=== PATIENT | male | born 1965 | race African-American/Black ===

== ENCOUNTER 2016-10-30 14:46 | Emergency (ER) | payer MEDICAID ==
[~2016-10-30] VITALS: Ht 177.8 cm; Wt 60.0 kg
[~2016-10-30 14:46] MED LIST: ACET-2178 PO; ESOM20CA PO; FERR-63 PO; FURO20TA4 PO; GABA-531 PO; METF10002 PO; MILK OF MAGNESIA PO; MIRT15TA6 PO; NOVOLIN SQ
[2016-10-30 15:40] LABS: CLARITY URINE CLEAR (CLEAR); COLOR URINE YELLOW (YELLOW); GLUCOSE URINE NEGATIVE (NEGATIVE); KETONES URINE NEGATIVE (NEGATIVE); LEUKOCYTE ESTERASE URINE NEGATIVE (NEGATIVE); NITRITE URINE NEGATIVE (NEGATIVE); OCCULT BLOOD URINE NEGATIVE (NEGATIVE); PH URINE 5.5 (4.5-8.0); PROTEIN URINE TRACE (NEGATIVE); SPECIFIC GRAVITY URINE 1.018 (1.005-1.030); UROBILINOGEN URINE 0.2 E.U./dL (0.2-1.0)
[2016-10-30] MEDS ORDERED: TRAMADOL 50MG TABLET PO ONE (16:00)
[2016-10-30 16:22] LABS: BACTERIA URINE 1+; RBC URINE NONE SEEN /hpf (0-2); SQUAMOUS EPITHELIAL CELL URINE RARE /lpf (RARE/1+); WBC URINE 0-2 /hpf (0-2)
[2016-10-30 16:26] LABS: BASOPHILS % 0.4 % (0.0-2.0); HEMATOCRIT. 27.8 % (42.0-52.0); HEMOGLOBIN. 9.1 g/dL (14.0-18.0); MEAN CORPUSCULAR HEMOGLOBIN 30.3 pg (28.0-32.0); MEAN CORPUSCULAR HGB CONC 32.9 g/dL (31.0-37.0); MEAN PLATELET VOLUME 8.4 fl (7.4-10.4); MONOCYTES % 7.3 % (2.0-8.0); NEUTROPHILS % 61.3 % (40.0-76.0); PLATELET 188 x1000/uL (130-400); RED BLOOD CELL COUNT 3.02 mill/uL (4.7-6.1); RED CELL DISTRIBUTION WIDTH 16.1 % (11.6-14.6); WHITE BLOOD COUNT 7.2 x1000/uL (4.5-11.0)
[2016-10-30 16:35] LABS: PARTIAL THROMBOPLASTIN TIME 28.6 sec (24.0-34.0); PROTHROMBIN TIME 10.9 sec
[2016-10-30 16:47] LABS: ALANINE AMINOTRANSFERASE 59 IU/L (13-61); ALBUMIN 3.2 g/dL (3.4-5.0); ANION GAP 11; CARBON DIOXIDE 18 mEq/L (21-32); CHLORIDE 121 mEq/L (98-107); INDEX HEMOLYSI 1 (1-3); INDEX ICTERIC 1 (1-4); INDEX LIPEMIC 1 (1-3); LIPASE 86 IU/L (73-393); MAGNESIUM 1.4 mg/dL (1.8-2.4); PHOSPHORUS 2.7 mg/dL (2.5-4.9); UREA NITROGEN BLOOD 16 mg/dL (7-21); eGFR > 60 mL/min (>60)
[2016-10-30 16:49] LABS: NT PRO B-TYPE NATRIURETIC PEP 824 pg/mL (5-125); TROPONIN I < 0.02 ng/mL (0.00-0.04)
[2016-10-30] MEDS ORDERED: DEXTROSE 50% WATER 50ML SYRINGE IV ONE (17:00)
[2016-10-30] MEDS ORDERED: SODIUM POLYSTYRENE SULFONATE 15 G/60 ML BOT PO ONE (17:00)
[2016-10-30] MEDS ORDERED: CALCIUM CHLORIDE 1GM/10ML SYR IV ONE (17:00)
[2016-10-30] MEDS ORDERED: MAGNESIUM 1 G PREMIX 100 ML IV ONE (17:00)
[2016-10-30] MEDS ORDERED: SODIUM BICARBONATE 8.4% 1 MEQ/ML 50ML SYR IV ONE (17:00)
[2016-10-30] MEDS ORDERED: INSULIN REGULAR (HUMULIN R) 300UNITS/3ML IV ONE (17:00)
[2016-10-30 17:10] VITALS: BP 122/90
== END 2016-10-30 17:52 | disposition left against medical advice (07) ==
LOC: ER 15:23
DX: E87.5 Hyperkalemia (principal); I12.9 Hypertensive chronic kidney disease with stage 1 through stage 4 chronic kidney disease, or unspecified chronic kidney disease; M79.1 Myalgia; R26.89 Other abnormalities of gait and mobility; N17.9 Acute kidney failure, unspecified; E11.9 Type 2 diabetes mellitus without complications; K21.9 Gastro-esophageal reflux disease without esophagitis; J44.9 Chronic obstructive pulmonary disease, unspecified; F17.200 Nicotine dependence, unspecified, uncomplicated; M25.561 Pain in right knee; M25.562 Pain in left knee; Z79.4 Long term (current) use of insulin; Z79.899 Other long term (current) drug therapy
CPT/HCPCS: 36415; 71010; 80053; 81001; 83690; 83735; 83880; 84100; 84484; 85025; 85610; 85730; 93005; 99291; Z7610; J1815; J3475; J3490

== ENCOUNTER 2016-10-31 13:58 | Emergency (ER) | payer MEDICAID ==
[~2016-10-31] VITALS: Ht 175.3 cm; Wt 70.0 kg
[2016-10-31] MEDS ORDERED: MORPHINE SULFATE 4 MG/ML CPJ (NOT FOR IM USE) IV STA (14:19)
[2016-10-31] MEDS ORDERED: ONDANSETRON HCL 4MG/2ML VIAL IV STA (14:19)
[2016-10-31 14:55] LABS: BASOPHILS % 0.6 % (0.0-2.0); EOSINOPHILS % 2.6 % (0.0-5.0); HEMATOCRIT. 28.7 % (42.0-52.0); HEMOGLOBIN. 9.6 g/dL (14.0-18.0); MEAN CORPUSCULAR HEMOGLOBIN 30.4 pg (28.0-32.0); MEAN CORPUSCULAR HGB CONC 33.5 g/dL (31.0-37.0); MEAN CORPUSCULAR VOLUME 90.7 fL (80.0-94.0); MEAN PLATELET VOLUME 8.1 fl (7.4-10.4); MONOCYTES % 5.6 % (2.0-8.0); NEUTROPHILS % 66.2 % (40.0-76.0); PLATELET 219 x1000/uL (130-400); RED BLOOD CELL COUNT 3.16 mill/uL (4.7-6.1); RED CELL DISTRIBUTION WIDTH 16.1 % (11.6-14.6)
[2016-10-31 14:57] LABS: DIFFERENTIAL COMMENT 1
[2016-10-31 15:00] LABS: INR 1.1; PROTHROMBIN TIME 11.2 sec
[2016-10-31 15:06] LABS: ALANINE AMINOTRANSFERASE 57 IU/L (13-61); ALBUMIN 3.7 g/dL (3.4-5.0); ANION GAP 13; CALCIUM 8.3 mg/dL (8.5-10.1); CARBON DIOXIDE 20 mEq/L (21-32); CHLORIDE 113 mEq/L (98-107); INDEX HEMOLYSI 1 (1-3); INDEX ICTERIC 1 (1-4); INDEX LIPEMIC 1 (1-3); LIPASE 85 IU/L (73-393); UREA NITROGEN BLOOD 14 mg/dL (7-21); eGFR > 60 mL/min (>60)
[2016-10-31 16:02] LABS: CLARITY URINE CLEAR (CLEAR); COLOR URINE YELLOW (YELLOW); GLUCOSE URINE 1+ (NEGATIVE); KETONES URINE NEGATIVE (NEGATIVE); LEUKOCYTE ESTERASE URINE NEGATIVE (NEGATIVE); NITRITE URINE NEGATIVE (NEGATIVE); OCCULT BLOOD URINE NEGATIVE (NEGATIVE); PH URINE 5.5 (4.5-8.0); PROTEIN URINE 1+ (NEGATIVE); UROBILINOGEN URINE 0.2 E.U./dL (0.2-1.0)
[2016-10-31 16:06] LABS: BACTERIA URINE NONE SEEN; CALCIUM PHOSPHATE CRYSTALS UR NONE SEEN /lpf; RBC URINE NONE SEEN /hpf (0-2); SQUAMOUS EPITHELIAL CELL URINE NONE SEEN /lpf (RARE/1+); WAXY CASTS URINE NONE SEEN /lpf; WBC URINE NONE SEEN /hpf (0-2); YEAST URINE NONE SEEN
[2016-10-31 16:28] LABS: *AMPHETAMINES SCREEN URINE NEGATIVE (NEGATIVE); *BARBITURATES SCREEN URINE NEGATIVE (NEGATIVE); *BENZODIAZEPINES SCREEN URINE NEGATIVE (NEGATIVE); *COCAINE SCREEN URINE NEGATIVE (NEGATIVE); CANNABINOID URINE SCREEN PRESUMTIVE POSITIVE (NEGATIVE); ECSTASY MDMA SCREEN URINE NEGATIVE (NEGATIVE); METHADONE URINE SCREEN NEGATIVE (NEGATIVE); OPIATES URINE SCREEN NEGATIVE (NEGATIVE); PHENCYCLIDINE URINE SCREEN NEGATIVE (NEGATIVE)
[2016-10-31] MEDS ORDERED: SODIUM POLYSTYRENE SULFONATE 15 G/60 ML BOT PO ONE (18:15)
[2016-10-31 20:11] VITALS: BP 112/79
== END 2016-10-31 20:18 | disposition home or self-care (01) ==
LOC: ER 14:11
DX: R10.13 Epigastric pain (principal); J44.9 Chronic obstructive pulmonary disease, unspecified; E11.9 Type 2 diabetes mellitus without complications; I12.0 Hypertensive chronic kidney disease with stage 5 chronic kidney disease or end stage renal disease; N18.6 End stage renal disease; K21.9 Gastro-esophageal reflux disease without esophagitis; Z79.899 Other long term (current) drug therapy
CPT/HCPCS: 36415; 74176; 76705; 80053; 80305; 81001; 83690; 85025; 85610; 96374; 96375; 99285; J2270; J2405; Z7610

== ENCOUNTER 2016-12-03 16:37 | Emergency (ER) | payer MEDICAID ==
[~2016-12-03] VITALS: Ht 172.7 cm; Wt 66.0 kg
[2016-12-04] MEDS ORDERED: KETOROLAC 30MG/ML VIAL IV STA (02:14)
[2016-12-04] MEDS ORDERED: ONDANSETRON HCL 4MG/2ML VIAL IV STA (02:14)
[2016-12-04] MEDS ORDERED: SODIUM CHLORIDE 0.9% 1,000 ML IV ONE (02:14)
[2016-12-04] MEDS ORDERED: MAGNESIUM/ALUMINUM HYDROXIDE/SIMETHICONE 30ML UDC PO STA (02:14)
[2016-12-04 02:37] LABS: BASOPHILS % 0.5 % (0.0-2.0); EOSINOPHILS % 1.1 % (0.0-5.0); HEMATOCRIT. 31.7 % (42.0-52.0); HEMOGLOBIN. 10.5 g/dL (14.0-18.0); LYMPHOCYTES % 23.9 % (20.0-50.0); MEAN CORPUSCULAR VOLUME 90.9 fL (80.0-94.0); MEAN PLATELET VOLUME 8.6 fl (7.4-10.4); MONOCYTES % 6.7 % (2.0-8.0); NEUTROPHILS % 67.8 % (40.0-76.0); PLATELET 238 x1000/uL (130-400); RED BLOOD CELL COUNT 3.49 mill/uL (4.7-6.1); RED CELL DISTRIBUTION WIDTH 15.4 % (11.6-14.6); WHITE BLOOD COUNT 8.4 x1000/uL (4.5-11.0)
[2016-12-04 02:42] LABS: ALANINE AMINOTRANSFERASE 27 IU/L (13-61); ALBUMIN 3.8 g/dL (3.4-5.0); ANION GAP 14; CALCIUM 8.5 mg/dL (8.5-10.1); CARBON DIOXIDE 22 mEq/L (21-32); CHLORIDE 111 mEq/L (98-107); ETHANOL BLOOD < 10 mg/dL; INDEX HEMOLYSI 1 (1-3); INDEX ICTERIC 1 (1-4); INDEX LIPEMIC 1 (1-3); LIPASE 67 IU/L (73-393); UREA NITROGEN BLOOD 25 mg/dL (7-21); eGFR > 60 mL/min (>60)
[2016-12-04 02:51] LABS: CLARITY URINE CLEAR (CLEAR); COLOR URINE YELLOW (YELLOW); GLUCOSE URINE NEGATIVE (NEGATIVE); KETONES URINE NEGATIVE (NEGATIVE); LEUKOCYTE ESTERASE URINE NEGATIVE (NEGATIVE); NITRITE URINE NEGATIVE (NEGATIVE); OCCULT BLOOD URINE NEGATIVE (NEGATIVE); PH URINE 5.5 (4.5-8.0); PROTEIN URINE 1+ (NEGATIVE); SPECIFIC GRAVITY URINE 1.023 (1.005-1.030); UROBILINOGEN URINE 0.2 E.U./dL (0.2-1.0)
[2016-12-04 03:04] LABS: *AMPHETAMINES SCREEN URINE NEGATIVE (NEGATIVE); *BARBITURATES SCREEN URINE NEGATIVE (NEGATIVE); *BENZODIAZEPINES SCREEN URINE NEGATIVE (NEGATIVE); *COCAINE SCREEN URINE NEGATIVE (NEGATIVE); CANNABINOID URINE SCREEN PRESUMTIVE POSITIVE (NEGATIVE); ECSTASY MDMA SCREEN URINE NEGATIVE (NEGATIVE); METHADONE URINE SCREEN NEGATIVE (NEGATIVE); OPIATES URINE SCREEN NEGATIVE (NEGATIVE); PHENCYCLIDINE URINE SCREEN NEGATIVE (NEGATIVE)
[2016-12-04 03:13] LABS: BACTERIA URINE NONE SEEN; RBC URINE 0-2 /hpf (0-2); SQUAMOUS EPITHELIAL CELL URINE RARE /lpf (RARE/1+); WBC URINE 0-2 /hpf (0-2)
[2016-12-04] MEDS ORDERED: FAMOTIDINE 20MG/2ML VIAL IV STA (04:31)
[2016-12-04 05:55] VITALS: BP 118/80
== END 2016-12-04 06:42 | disposition home or self-care (01) ==
LOC: ER 16:38
DX: K29.00 Acute gastritis without bleeding (principal); J44.9 Chronic obstructive pulmonary disease, unspecified; E11.9 Type 2 diabetes mellitus without complications; K21.9 Gastro-esophageal reflux disease without esophagitis; I10 Essential (primary) hypertension; F17.210 Nicotine dependence, cigarettes, uncomplicated; Z79.4 Long term (current) use of insulin; Z79.1 Long term (current) use of non-steroidal anti-inflammatories (NSAID); Z79.899 Other long term (current) drug therapy
CPT/HCPCS: 36415; 80053; 80305; 81001; 83690; 85025; 96361; 96374; 96375; 99285; G0482; J1885; J2405; J7030; J3490

== ENCOUNTER 2016-12-14 15:07 | Emergency (ER) | payer MEDICAID, OTHER ==
[~2016-12-14] VITALS: Ht 177.8 cm; Wt 62.0 kg
[2016-12-14] MEDS ORDERED: SILVER SULFADIAZINE 1% CREAM 25GM TOP ONE (16:45)
[2016-12-14 18:14] VITALS: BP 103/62
[2016-12-14] MEDS ORDERED: KETOROLAC 60MG/2ML VIAL IM ONE (18:15)
== END 2016-12-14 18:45 | disposition home or self-care (01) ==
LOC: ER 15:52
DX: T24.202A Burn of second degree of unspecified site of left lower limb, except ankle and foot, initial encounter (principal); W29.2XXA Contact with other powered household machinery, initial encounter; Y93.84 Activity, sleeping; Y92.092 Bedroom in other non-institutional residence as the place of occurrence of the external cause; Z79.4 Long term (current) use of insulin; E11.9 Type 2 diabetes mellitus without complications; F17.210 Nicotine dependence, cigarettes, uncomplicated
CPT/HCPCS: 16020; 82962; 96372; 99284; J1885; Z7610

== ENCOUNTER 2016-12-19 16:36 | Emergency (ER) | payer MEDICAID, OTHER ==
[~2016-12-19] VITALS: Ht 177.8 cm; Wt 64.0 kg
[2016-12-19] MEDS ORDERED: BACITRACIN ZINC OINT UDPKT TOP ONE (18:15)
[2016-12-19] MEDS ORDERED: MORPHINE SULFATE 10 MG/ML CPJ IM ONE (18:15)
[2016-12-19 18:34] LABS: BASOPHILS % 0.4 % (0.0-2.0); EOSINOPHILS % 1.7 % (0.0-5.0); HEMATOCRIT. 29.1 % (42.0-52.0); HEMOGLOBIN. 9.7 g/dL (14.0-18.0); LYMPHOCYTES % 26.5 % (20.0-50.0); MEAN CORPUSCULAR HEMOGLOBIN 30.1 pg (28.0-32.0); MEAN CORPUSCULAR HGB CONC 33.2 g/dL (31.0-37.0); MEAN CORPUSCULAR VOLUME 90.7 fL (80.0-94.0); MEAN PLATELET VOLUME 8.3 fl (7.4-10.4); MONOCYTES % 8.7 % (2.0-8.0); NEUTROPHILS % 62.7 % (40.0-76.0); PLATELET 229 x1000/uL (130-400); RED BLOOD CELL COUNT 3.21 mill/uL (4.7-6.1); RED CELL DISTRIBUTION WIDTH 14.5 % (11.6-14.6); WHITE BLOOD COUNT 7.2 x1000/uL (4.5-11.0)
[2016-12-19 18:39] LABS: CHLORIDE 109 mEq/L (98-107); INDEX HEMOLYSI 1 (1-3); INDEX ICTERIC 1 (1-4); INDEX LIPEMIC 1 (1-3)
[2016-12-19 18:40] LABS: INR 1.1; PROTHROMBIN TIME 11.5 sec
[2016-12-19 18:45] LABS: ANION GAP 12; CALCIUM 8.1 mg/dL (8.5-10.1); CARBON DIOXIDE 22 mEq/L (21-32); UREA NITROGEN BLOOD 14 mg/dL (7-21); eGFR > 60 mL/min (>60)
[2016-12-19] MEDS ORDERED: CEPHALEXIN 500MG CAPSULE PO ONE (19:15)
[2016-12-19] MEDS ORDERED: SULFAMETHOXAZOLE/TRIMETHOPRIM 800/160MG TABLET PO ONE (19:15)
[2016-12-19 19:25] VITALS: BP 137/80
== END 2016-12-19 20:35 | disposition home or self-care (01) ==
LOC: ER 20:04
DX: T24.202A Burn of second degree of unspecified site of left lower limb, except ankle and foot, initial encounter (principal); L03.116 Cellulitis of left lower limb; E11.9 Type 2 diabetes mellitus without complications; F17.210 Nicotine dependence, cigarettes, uncomplicated; Z79.899 Other long term (current) drug therapy; X08.8XXA Exposure to other specified smoke, fire and flames, initial encounter; Y93.89 Activity, other specified; Y92.9 Unspecified place or not applicable; Y99.8 Other external cause status
CPT/HCPCS: 36415; 80048; 83605; 85025; 85610; 87070; 87077; 87186; 87205; 96372; 99285; J2270; Z7610

== ENCOUNTER 2017-02-07 13:00 | Emergency (ER) | payer MEDICAID, OTHER ==
[~2017-02-07] VITALS: Ht 177.8 cm; Wt 68.0 kg
[2017-02-07 13:15] VITALS: BP 125/83
[2017-02-07] MEDS ORDERED: IBUPROFEN 600MG TABLET PO ONE (14:45)
[2017-02-07] MEDS ORDERED: ACETAMINOPHEN 325MG TABLET PO ONE (15:00)
== END 2017-02-07 15:18 | disposition home or self-care (01) ==
LOC: ER 13:55
DX: M79.605 Pain in left leg (principal); I10 Essential (primary) hypertension; E11.9 Type 2 diabetes mellitus without complications; Z79.4 Long term (current) use of insulin
CPT/HCPCS: 99282; Z7610

== ENCOUNTER 2017-12-15 13:26 | Emergency (ER) | payer MEDICAID ==
[~2017-12-15] VITALS: Ht 162.6 cm; Wt 64.0 kg
[2017-12-15 14:36] LABS: BASOPHILS % 0.3 % (0.0-2.0); EOSINOPHILS % 3.1 % (0.0-5.0); HEMATOCRIT. 28.5 % (42.0-52.0); HEMOGLOBIN. 9.5 g/dL (14.0-18.0); LYMPHOCYTES % 32.7 % (20.0-50.0); MEAN CORPUSCULAR HEMOGLOBIN 31.7 pg (28.0-32.0); MEAN CORPUSCULAR VOLUME 94.7 fL (80.0-94.0); MEAN PLATELET VOLUME 8.2 fl (7.4-10.4); MONOCYTES % 7.7 % (2.0-8.0); NEUTROPHILS % 56.2 % (40.0-76.0); PLATELET 163 x1000/uL (130-400); RED BLOOD CELL COUNT 3.01 mill/uL (4.7-6.1); RED CELL DISTRIBUTION WIDTH 14.6 % (11.6-14.6)
[2017-12-15 14:42] LABS: CHLORIDE 119 mEq/L (98-107)
[2017-12-15 14:43] VITALS: BP 119/72
== END 2017-12-15 15:27 | disposition left against medical advice (07) ==
LOC: ER 15:00
DX: M79.669 Pain in unspecified lower leg (principal); E11.9 Type 2 diabetes mellitus without complications; Z79.4 Long term (current) use of insulin
CPT/HCPCS: 36415; 80053; 85025; 99284

== ENCOUNTER 2018-06-05 12:38 | Inpatient (IN) | payer MEDICAID ==
[~2018-06-05] VITALS: Ht 172.7 cm; Wt 63.5 kg
[~2018-06-05 12:38] MED LIST changes: -ESOM20CA PO; -METF10002 PO; -MILK OF MAGNESIA PO; -MIRT15TA6 PO; -NOVOLIN SQ
[2018-06-05 14:20] LABS: BASOPHILS % 0.9 % (0.0-2.0); EOSINOPHILS % 1.7 % (0.0-5.0); HEMATOCRIT. 23.4 % (42.0-52.0); HEMOGLOBIN. 7.9 g/dL (14.0-18.0); LYMPHOCYTES % 12.3 % (20.0-50.0); MEAN CORPUSCULAR HEMOGLOBIN 32.8 pg (28.0-32.0); MEAN CORPUSCULAR VOLUME 97.2 fL (80.0-94.0); MEAN PLATELET VOLUME 7.8 fl (7.4-10.4); MONOCYTES % 7.7 % (2.0-8.0); NEUTROPHILS % 77.4 % (40.0-76.0); PLATELET 200 x1000/uL (130-400); RED BLOOD CELL COUNT 2.41 mill/uL (4.7-6.1); RED CELL DISTRIBUTION WIDTH 16.6 % (11.6-14.6)
[2018-06-05 14:25] LABS: CLARITY URINE CLEAR (CLEAR); COLOR URINE YELLOW (YELLOW); KETONES URINE NEGATIVE (NEGATIVE); LEUKOCYTE ESTERASE URINE NEGATIVE (NEGATIVE); NITRITE URINE NEGATIVE (NEGATIVE); OCCULT BLOOD URINE NEGATIVE (NEGATIVE); PROTEIN URINE TRACE (NEGATIVE); SPECIFIC GRAVITY URINE 1.018 (1.005-1.030); UROBILINOGEN URINE 0.2 E.U./dL (0.2-1.0)
[2018-06-05 14:27] LABS: PROTHROMBIN TIME 10.5 sec (9.1-11.1)
[2018-06-05 14:31] LABS: CHLORIDE 110 mEq/L (98-107)
[2018-06-05] MEDS ORDERED: OXYCODONE HCL/ACETAMINOPHEN 5/325MG TABLET PO ONE (15:15)
[2018-06-05] MEDS ORDERED: CLINDAMYCIN 600 MG in DEXTROSE 5% WATER 50 ML IV ONE (15:15)
[2018-06-05] MEDS ORDERED: DOCUSATE SODIUM 100MG CAPSULE PO PRN (15:45)
[2018-06-05] MEDS ORDERED: ONDANSETRON HCL 4MG/2ML INJ IV PRN (15:45)
[2018-06-05] MEDS ORDERED: CLONIDINE 0.1MG TABLET PO PRN (15:45)
[2018-06-05] MEDS ORDERED: IPRATROPIUM/ALBUTEROL 0.5-3(2.5)MG/3ML NEB INH PRN (15:45)
[2018-06-05] MEDS ORDERED: ACETAMINOPHEN 325MG TABLET PO PRN (15:45)
[2018-06-05] MEDS: HYDROCODONE/ACETAMINOPHEN 5/325MG TABLET PO PRN (18:52)
[2018-06-05 21:30] VITALS: BP 113/66
[2018-06-05 22:00] VITALS: BP 113/66
[2018-06-05] MEDS ORDERED: DEXTROSE 50% WATER 50ML SYRINGE IV PRN (22:00)
[2018-06-06] MEDS: HYDROCODONE/ACETAMINOPHEN 5/325MG TABLET PO PRN ×3 (00:12→12:37)
[2018-06-06 00:49] VITALS: BP 116/72
[2018-06-06 04:00] VITALS: BP 122/68
[2018-06-06] MEDS: BLOOD SUGAR DIAGNOSTIC STRIP TEST SCH ×4 (06:25→21:30)
[2018-06-06 07:34] LABS: BASOPHILS % 0.6 % (0.0-2.0); EOSINOPHILS % 1.9 % (0.0-5.0); HEMATOCRIT. 22.5 % (42.0-52.0); HEMOGLOBIN. 7.5 g/dL (14.0-18.0); LYMPHOCYTES % 15.9 % (20.0-50.0); MEAN CORPUSCULAR HEMOGLOBIN 32.5 pg (28.0-32.0); MEAN CORPUSCULAR VOLUME 97.9 fL (80.0-94.0); MEAN PLATELET VOLUME 7.9 fl (7.4-10.4); MONOCYTES % 7.6 % (2.0-8.0); PLATELET 187 x1000/uL (130-400); RED CELL DISTRIBUTION WIDTH 16.7 % (11.6-14.6)
[2018-06-06] MEDS: INSULIN LISPRO 100 UNITS/ML SUBCUT SCH ×4 (07:41→21:30)
[2018-06-06 08:00] VITALS: BP 96/60
[2018-06-06 12:00] VITALS: BP 125/65
[2018-06-06 16:00] VITALS: BP 110/68
[2018-06-06] MEDS: MORPHINE SULFATE 4 MG/ML CPJ (NOT FOR IM USE) IV PRN (18:57)
[2018-06-06 20:00] VITALS: BP 139/75
[2018-06-07] VITALS: BP 126/76
[2018-06-07] MEDS: MORPHINE SULFATE 4 MG/ML CPJ (NOT FOR IM USE) IV PRN ×4 (00:11→21:09)
[2018-06-07 04:00] VITALS: BP 130/65
[2018-06-07] MEDS: BLOOD SUGAR DIAGNOSTIC STRIP TEST SCH ×3 (07:40→21:00)
[2018-06-07 08:00] VITALS: BP 124/67
[2018-06-07] MEDS: INSULIN LISPRO 100 UNITS/ML SUBCUT SCH ×4 (08:10→21:00)
[2018-06-07 08:23] LABS: BASOPHILS % 0.8 % (0.0-2.0); EOSINOPHILS % 1.2 % (0.0-5.0); HEMATOCRIT. 23.9 % (42.0-52.0); LYMPHOCYTES % 16.7 % (20.0-50.0); MEAN CORPUSCULAR HEMOGLOBIN 32.7 pg (28.0-32.0); MEAN CORPUSCULAR VOLUME 98.2 fL (80.0-94.0); MEAN PLATELET VOLUME 7.8 fl (7.4-10.4); NEUTROPHILS % 72.3 % (40.0-76.0); PLATELET 201 x1000/uL (130-400); RED BLOOD CELL COUNT 2.44 mill/uL (4.7-6.1); RED CELL DISTRIBUTION WIDTH 16.5 % (11.6-14.6)
[2018-06-07 12:48] LABS: TOTAL IRON BINDING CAPACITY 196 ug/dL (250-450)
[2018-06-07 13:08] LABS: FOLIC ACID (FOLATE) SERUM 10.2 ng/mL (>5.38)
[2018-06-07 16:00] VITALS: BP 129/75
[2018-06-07] MEDS: HYDROCODONE/ACETAMINOPHEN 5/325MG TABLET PO PRN (16:25)
[2018-06-07 20:00] VITALS: BP 143/64
[2018-06-08] VITALS (7 sets, daily range): BP systolic 113–139; BP diastolic 56–75
[2018-06-08] MEDS: MORPHINE SULFATE 4 MG/ML CPJ (NOT FOR IM USE) IV PRN ×3 (03:29→20:24)
[2018-06-08] MEDS: HYDROCODONE/ACETAMINOPHEN 5/325MG TABLET PO PRN ×3 (05:03→18:44)
[2018-06-08 07:29] LABS: BASOPHILS % 0.5 % (0.0-2.0); EOSINOPHILS % 1.7 % (0.0-5.0); HEMATOCRIT. 22.5 % (42.0-52.0); HEMOGLOBIN. 7.4 g/dL (14.0-18.0); LYMPHOCYTES % 18.6 % (20.0-50.0); MEAN CORPUSCULAR VOLUME 96.8 fL (80.0-94.0); MEAN PLATELET VOLUME 8.2 fl (7.4-10.4); MONOCYTES % 9.8 % (2.0-8.0); NEUTROPHILS % 69.4 % (40.0-76.0); PLATELET 191 x1000/uL (130-400); RED BLOOD CELL COUNT 2.32 mill/uL (4.7-6.1); RED CELL DISTRIBUTION WIDTH 16.4 % (11.6-14.6)
[2018-06-08] MEDS: BLOOD SUGAR DIAGNOSTIC STRIP TEST SCH ×4 (07:40→21:40)
[2018-06-08] MEDS: INSULIN LISPRO 100 UNITS/ML SUBCUT SCH ×4 (08:10→21:00)
[2018-06-08] MEDS: FAMOTIDINE 20MG/2ML VIAL IV SCH (08:33)
[2018-06-08] MEDS ORDERED: PEPJ2 PO (11:12)
[2018-06-08] MEDS: EPOETIN ALFA 10000UNITS/ML VIAL SUBCUT SCH (21:36)
[2018-06-09] VITALS: BP 119/75
[2018-06-09] MEDS: HYDROCODONE/ACETAMINOPHEN 5/325MG TABLET PO PRN ×4 (01:11→21:13)
[2018-06-09 04:00] VITALS: BP 131/71
[2018-06-09] MEDS: MORPHINE SULFATE 4 MG/ML CPJ (NOT FOR IM USE) IV PRN ×3 (05:16→22:31)
[2018-06-09] MEDS: BLOOD SUGAR DIAGNOSTIC STRIP TEST SCH ×4 (05:23→21:17)
[2018-06-09 06:06] LABS: BASOPHILS % 0.4 % (0.0-2.0); EOSINOPHILS % 1.4 % (0.0-5.0); HEMOGLOBIN. 7.4 g/dL (14.0-18.0); MEAN CORPUSCULAR HEMOGLOBIN 32.5 pg (28.0-32.0); MEAN CORPUSCULAR VOLUME 97.3 fL (80.0-94.0); MEAN PLATELET VOLUME 8.2 fl (7.4-10.4); MONOCYTES % 11.4 % (2.0-8.0); NEUTROPHILS % 67.8 % (40.0-76.0); PLATELET 194 x1000/uL (130-400); RED BLOOD CELL COUNT 2.26 mill/uL (4.7-6.1); RED CELL DISTRIBUTION WIDTH 16.1 % (11.6-14.6)
[2018-06-09 08:00] VITALS: BP 134/57
[2018-06-09] MEDS: FAMOTIDINE 20MG/2ML VIAL IV SCH (08:38)
[2018-06-09] MEDS: INSULIN LISPRO 100 UNITS/ML SUBCUT SCH ×4 (08:46→21:17)
[2018-06-09 12:00] VITALS: BP 129/61
[2018-06-09 16:00] VITALS: BP 142/68
[2018-06-09 20:00] VITALS: BP 125/73
[2018-06-10] VITALS: BP 109/51
[2018-06-10] MEDS: HYDROCODONE/ACETAMINOPHEN 5/325MG TABLET PO PRN ×3 (02:13→20:05)
[2018-06-10 04:00] VITALS: BP 123/69
[2018-06-10] MEDS: MORPHINE SULFATE 4 MG/ML CPJ (NOT FOR IM USE) IV PRN ×4 (04:27→22:02)
[2018-06-10] MEDS: BLOOD SUGAR DIAGNOSTIC STRIP TEST SCH ×4 (04:28→21:54)
[2018-06-10 06:59] LABS: BASOPHILS % 0.4 % (0.0-2.0); EOSINOPHILS % 1.9 % (0.0-5.0); HEMATOCRIT. 22.4 % (42.0-52.0); HEMOGLOBIN. 7.3 g/dL (14.0-18.0); LYMPHOCYTES % 14.7 % (20.0-50.0); MEAN CORPUSCULAR HEMOGLOBIN 31.8 pg (28.0-32.0); MEAN CORPUSCULAR VOLUME 97.2 fL (80.0-94.0); MEAN PLATELET VOLUME 8.5 fl (7.4-10.4); MONOCYTES % 9.2 % (2.0-8.0); NEUTROPHILS % 73.8 % (40.0-76.0); PLATELET 173 x1000/uL (130-400); RED CELL DISTRIBUTION WIDTH 16.2 % (11.6-14.6)
[2018-06-10 08:00] VITALS: BP 151/80
[2018-06-10] MEDS: FAMOTIDINE 20MG/2ML VIAL IV SCH (08:02)
[2018-06-10] MEDS: INSULIN LISPRO 100 UNITS/ML SUBCUT SCH ×4 (08:04→21:00)
[2018-06-10 12:00] VITALS: BP 148/89
[2018-06-10] MEDS ORDERED: HEPARIN SODIUM 1,000 UNIT/1ML VIAL IV SCH (12:45)
[2018-06-10 16:00] VITALS: BP 152/76
[2018-06-10 20:00] VITALS: BP 122/49
[2018-06-10] MEDS: EPOETIN ALFA 10000UNITS/ML VIAL SUBCUT SCH (21:58)
[2018-06-11] VITALS: BP 116/62
[2018-06-11] MEDS: HYDROCODONE/ACETAMINOPHEN 5/325MG TABLET PO PRN ×5 (00:23→23:01)
[2018-06-11 04:00] VITALS: BP 126/72
[2018-06-11] MEDS: BLOOD SUGAR DIAGNOSTIC STRIP TEST SCH ×4 (04:37→21:41)
[2018-06-11] MEDS: MORPHINE SULFATE 4 MG/ML CPJ (NOT FOR IM USE) IV PRN ×2 (04:37→09:31)
[2018-06-11 06:47] LABS: BASOPHILS % 0.3 % (0.0-2.0); EOSINOPHILS % 2.2 % (0.0-5.0); HEMATOCRIT. 22.6 % (42.0-52.0); HEMOGLOBIN. 7.5 g/dL (14.0-18.0); LYMPHOCYTES % 15.6 % (20.0-50.0); MEAN CORPUSCULAR HEMOGLOBIN 32.4 pg (28.0-32.0); MEAN CORPUSCULAR VOLUME 98.2 fL (80.0-94.0); MEAN PLATELET VOLUME 8.3 fl (7.4-10.4); MONOCYTES % 10.8 % (2.0-8.0); NEUTROPHILS % 71.1 % (40.0-76.0); PLATELET 207 x1000/uL (130-400)
[2018-06-11 08:00] VITALS: BP 145/78
[2018-06-11] MEDS: INSULIN LISPRO 100 UNITS/ML SUBCUT SCH ×4 (08:10→21:43)
[2018-06-11] MEDS: FAMOTIDINE 20MG/2ML VIAL IV SCH (09:31)
[2018-06-11 14:09] VITALS: BP 140/74
[2018-06-11 15:59] VITALS: BP 101/60
[2018-06-11 20:00] VITALS: BP 143/79
[2018-06-12] VITALS: BP 136/77
[2018-06-12 04:00] VITALS: BP 145/77
[2018-06-12] MEDS: HYDROCODONE/ACETAMINOPHEN 5/325MG TABLET PO PRN ×3 (05:19→21:47)
[2018-06-12] MEDS: BLOOD SUGAR DIAGNOSTIC STRIP TEST SCH ×4 (06:16→21:47)
[2018-06-12] MEDS: INSULIN LISPRO 100 UNITS/ML SUBCUT SCH ×4 (06:16→21:58)
[2018-06-12 07:24] LABS: BASOPHILS % 0.2 % (0.0-2.0); EOSINOPHILS % 1.8 % (0.0-5.0); HEMATOCRIT. 22.6 % (42.0-52.0); HEMOGLOBIN. 7.7 g/dL (14.0-18.0); LYMPHOCYTES % 15.4 % (20.0-50.0); MEAN CORPUSCULAR HEMOGLOBIN 32.8 pg (28.0-32.0); MEAN CORPUSCULAR VOLUME 96.8 fL (80.0-94.0); MEAN PLATELET VOLUME 8.3 fl (7.4-10.4); MONOCYTES % 10.9 % (2.0-8.0); NEUTROPHILS % 71.7 % (40.0-76.0); PLATELET 217 x1000/uL (130-400); RED BLOOD CELL COUNT 2.33 mill/uL (4.7-6.1)
[2018-06-12 08:00] VITALS: BP 139/75
[2018-06-12] MEDS: FAMOTIDINE 20MG/2ML VIAL IV SCH ×2 (09:00→09:56)
[2018-06-12 12:00] VITALS: BP 154/78
[2018-06-12] MEDS ORDERED: HEPARIN SODIUM 1,000 UNIT/1ML VIAL IV NR (13:00)
[2018-06-12 16:00] VITALS: BP 132/64
[2018-06-12 20:00] VITALS: BP 132/72
[2018-06-12] MEDS: EPOETIN ALFA 10000UNITS/ML VIAL SUBCUT SCH (21:42)
[2018-06-13] VITALS: BP 144/75
[2018-06-13 04:00] VITALS: BP_SYST 121; BP_SYST 129; BP_SYST 144; BP_DIAS 58; BP_DIAS 72; BP_DIAS 75
[2018-06-13] MEDS: HYDROCODONE/ACETAMINOPHEN 5/325MG TABLET PO PRN ×3 (06:29→18:19)
[2018-06-13] MEDS: BLOOD SUGAR DIAGNOSTIC STRIP TEST SCH ×4 (07:27→21:22)
[2018-06-13] MEDS: INSULIN LISPRO 100 UNITS/ML SUBCUT SCH ×4 (07:57→21:00)
[2018-06-13 08:00] VITALS: BP 107/68
[2018-06-13] MEDS: FAMOTIDINE 20MG/2ML VIAL IV SCH (09:00)
[2018-06-13 12:00] VITALS: BP 106/57
[2018-06-13 16:00] VITALS: BP 132/55
[2018-06-14] VITALS: BP 121/65
[2018-06-14] MEDS: HYDROCODONE/ACETAMINOPHEN 5/325MG TABLET PO PRN ×4 (02:40→19:52)
[2018-06-14] MEDS: BLOOD SUGAR DIAGNOSTIC STRIP TEST SCH ×4 (05:58→21:09)
[2018-06-14 08:00] VITALS: BP 112/73
[2018-06-14 08:08] LABS: BASOPHILS % 0.5 % (0.0-2.0); EOSINOPHILS % 1.7 % (0.0-5.0); HEMATOCRIT. 24.8 % (42.0-52.0); HEMOGLOBIN. 8.2 g/dL (14.0-18.0); LYMPHOCYTES % 25.9 % (20.0-50.0); MEAN CORPUSCULAR VOLUME 96.5 fL (80.0-94.0); MEAN PLATELET VOLUME 7.8 fl (7.4-10.4); MONOCYTES % 8.2 % (2.0-8.0); NEUTROPHILS % 63.7 % (40.0-76.0); PLATELET 305 x1000/uL (130-400); RED BLOOD CELL COUNT 2.57 mill/uL (4.7-6.1)
[2018-06-14] MEDS: INSULIN LISPRO 100 UNITS/ML SUBCUT SCH ×4 (08:10→21:00)
[2018-06-14] MEDS: FAMOTIDINE 20MG/2ML VIAL IV SCH (08:21)
[2018-06-14 12:00] VITALS: BP 122/72
[2018-06-14 17:00] VITALS: BP 122/72
[2018-06-14 20:00] VITALS: BP 147/81
[2018-06-14] MEDS ORDERED: FAMOTIDINE 20MG TABLET PO SCH (21:00)
== END 2018-06-14 22:21 | DRG 469 ==
LOC: ER 13:35 → 7WST 15:14 → EDBEDREQ 15:18 → ENRESERV 19:39
PROVIDERS: ADMIT Internal Medicine; ATTEND Internal Medicine
PROC: 5A1D70Z Performance of Urinary Filtration, Intermittent, Less than 6 Hours Per Day (ICD-10-PCS; principal; 2018-06-06)
PROC: 5A1D70Z Performance of Urinary Filtration, Intermittent, Less than 6 Hours Per Day (ICD-10-PCS; 2018-06-08)
PROC: 5A1D70Z Performance of Urinary Filtration, Intermittent, Less than 6 Hours Per Day (ICD-10-PCS; 2018-06-10)
PROC: 5A1D70Z Performance of Urinary Filtration, Intermittent, Less than 6 Hours Per Day (ICD-10-PCS; 2018-06-12)
DX: N17.9 Acute kidney failure, unspecified (principal); E11.22 Type 2 diabetes mellitus with diabetic chronic kidney disease; E11.40 Type 2 diabetes mellitus with diabetic neuropathy, unspecified; L03.115 Cellulitis of right lower limb; E87.5 Hyperkalemia; I12.0 Hypertensive chronic kidney disease with stage 5 chronic kidney disease or end stage renal disease; L03.116 Cellulitis of left lower limb; N18.6 End stage renal disease; F17.210 Nicotine dependence, cigarettes, uncomplicated; D53.9 Nutritional anemia, unspecified; S60.521A Blister (nonthermal) of right hand, initial encounter; K21.9 Gastro-esophageal reflux disease without esophagitis; K52.9 Noninfective gastroenteritis and colitis, unspecified; S80.222A Blister (nonthermal), left knee, initial encounter; S80.221A Blister (nonthermal), right knee, initial encounter; S60.821A Blister (nonthermal) of right wrist, initial encounter; X58.XXXA Exposure to other specified factors, initial encounter; R10.9 Unspecified abdominal pain; Y93.89 Activity, other specified; Y92.89 Other specified places as the place of occurrence of the external cause; Y99.8 Other external cause status; Z59.0 Homelessness; Z99.2 Dependence on renal dialysis; Z88.6 Allergy status to analgesic agent; Z79.899 Other long term (current) drug therapy; Z89.022 Acquired absence of left finger(s)
CPT/HCPCS: 36415; 71045; 76700; 80048; 80061; 82270; 82607; 82728; 82746; 82962; 83540; 83550; 84443; 87015; 87045; 87427; 87449; 89055; 93005; 93970; 96365; 99285; J0885; J1644; J1815; J2270; J3490; J7030; J7060

== ENCOUNTER 2018-09-01 11:06 | Inpatient (IN) | payer MEDICAID ==
[~2018-09-01] VITALS: Ht 170.2 cm; Wt 51.7 kg
[~2018-09-01 11:06] MED LIST changes: -ACET-2178 PO; -FERR-63 PO; -FURO20TA4 PO; +PEPJ2 PO
[2018-09-01] MEDS ORDERED: SODIUM CHLORIDE 0.9% 1,000 ML IV ONE (11:24)
[2018-09-01] MEDS ORDERED: ONDANSETRON HCL 4MG/2ML INJ IV STA (11:24)
[2018-09-01] MEDS ORDERED: DEXTROSE 50% WATER 50ML SYRINGE IV ONE ×3 (11:45→13:19)
[2018-09-01 11:50] LABS: BG BASE EXCESS -6.1 mmol/L (-2.0-2.0); BG CARBOXYHEMOGLOBIN 0.1 % (0.5-1.5); BG FRACTION INSPIRED OXYGEN 21; BG HCO3 ACT 21.2 mmol/L (22.0-26.0); BG METHEMOGLOBIN 0.1 % (0.0-1.5); BG OXYHEMOGLOBIN 94.8 % (94.0-97.0); BG PCO2 48.8 mmHg (35.0-45.0); BG PH 7.255 (7.350-7.450); BG SAMPLE SITE LEFT RADIAL; BG TOTAL HEMOGLOBIN 12.4 g/dL (12.0-18.0); BG VENT MODE ROOM AIR
[2018-09-01 12:46] LABS: CLARITY URINE CLOUDY (CLEAR); COLOR URINE YELLOW (YELLOW); KETONES URINE NEGATIVE (NEGATIVE); LEUKOCYTE ESTERASE URINE TRACE (NEGATIVE); NITRITE URINE NEGATIVE (NEGATIVE); OCCULT BLOOD URINE 3+ (NEGATIVE); PROTEIN URINE 3+ (NEGATIVE); SPECIFIC GRAVITY URINE 1.016 (1.005-1.030); UROBILINOGEN URINE 0.2 E.U./dL (0.2-1.0)
[2018-09-01 12:56] LABS: CHLORIDE 112 mEq/L (98-107); HEMATOCRIT. 38.5 % (42.0-52.0); HEMOGLOBIN. 12.2 g/dL (14.0-18.0); MEAN CORPUSCULAR HEMOGLOBIN 29.6 pg (28.0-32.0); MEAN CORPUSCULAR VOLUME 93.3 fL (80.0-94.0); MEAN PLATELET VOLUME 7.8 fl (7.4-10.4); PLATELET 230 x1000/uL (130-400); RED BLOOD CELL COUNT 4.12 mill/uL (4.7-6.1); RED CELL DISTRIBUTION WIDTH 17.5 % (11.6-14.6)
[2018-09-01 12:59] LABS: INR 1.5; PROTHROMBIN TIME 14.9 sec (9.1-11.1)
[2018-09-01 13:03] LABS: ETHANOL BLOOD < 10 mg/dL
[2018-09-01 13:12] LABS: *AMPHETAMINES SCREEN URINE NEGATIVE (NEGATIVE); *BARBITURATES SCREEN URINE NEGATIVE (NEGATIVE); *BENZODIAZEPINES SCREEN URINE NEGATIVE (NEGATIVE); *COCAINE SCREEN URINE NEGATIVE (NEGATIVE); METHADONE URINE SCREEN NEGATIVE (NEGATIVE); OPIATES URINE SCREEN NEGATIVE (NEGATIVE)
[2018-09-01 13:13] LABS: CANNABINOID URINE SCREEN NEGATIVE (NEGATIVE); PHENCYCLIDINE URINE SCREEN NEGATIVE (NEGATIVE)
[2018-09-01] MEDS ORDERED: DEXTROSE 10% WATER 500 ML IV ONE ×2 (13:15→17:00)
[2018-09-01 13:17] LABS: PLATELET ESTIMATE NORMAL
[2018-09-01] MEDS ORDERED: ONDANSETRON HCL 4MG/2ML INJ IV ONE (15:15)
[2018-09-01] MEDS ORDERED: METOCLOPRAMIDE HCL 10MG/2ML VIAL IV ONE (15:15)
[2018-09-01] MEDS ORDERED: ACETAMINOPHEN 325MG TABLET PO PRN (16:15)
[2018-09-01] MEDS ORDERED: ONDANSETRON HCL 4MG/2ML INJ IV PRN (16:15)
[2018-09-01 17:00] VITALS: BP 113/93
[2018-09-01] MEDS ORDERED: DEXTROSE 50% WATER 50ML SYRINGE IV PRN (20:15)
[2018-09-01] MEDS: BLOOD SUGAR DIAGNOSTIC STRIP TEST SCH (21:45)
[2018-09-01 22:00] VITALS: BP 131/87
[2018-09-01] MEDS: INSULIN LISPRO 100 UNITS/ML SUBCUT SCH (22:29)
[2018-09-01] MEDS: CEFTRIAXONE 1 G PREMIX 50 ML IV SCH (22:38)
[2018-09-02] VITALS (8 sets, daily range): BP systolic 94–135; BP diastolic 32–85
[2018-09-02 07:16] LABS: BASOPHILS % 0.4 % (0.0-2.0); EOSINOPHILS % 1.1 % (0.0-5.0); HEMATOCRIT. 41.5 % (42.0-52.0); HEMOGLOBIN. 13.5 g/dL (14.0-18.0); LYMPHOCYTES % 7.7 % (20.0-50.0); MEAN CORPUSCULAR HEMOGLOBIN 30.3 pg (28.0-32.0); MEAN CORPUSCULAR VOLUME 93.2 fL (80.0-94.0); MONOCYTES % 3.9 % (2.0-8.0); NEUTROPHILS % 86.9 % (40.0-76.0); RED BLOOD CELL COUNT 4.46 mill/uL (4.7-6.1); RED CELL DISTRIBUTION WIDTH 17.3 % (11.6-14.6)
[2018-09-02] MEDS: INSULIN LISPRO 100 UNITS/ML SUBCUT SCH ×2 (07:59→12:22)
[2018-09-02] MEDS: BLOOD SUGAR DIAGNOSTIC STRIP TEST SCH ×4 (07:59→21:00)
[2018-09-02] MEDS ORDERED: LIDOCAINE HCL 1% 20ML VIAL (Pyxis) INJ ONE (08:19)
[2018-09-02 08:48] LABS: PLATELET 260 x1000/uL (130-400)
[2018-09-02] MEDS: CITRIC ACID/SODIUM CITRATE SOLN 30ML UDC PO SCH ×3 (09:00→17:10)
[2018-09-02] MEDS ORDERED: SODIUM POLYSTYRENE SULFONATE 15 G/60 ML BOT PO NR (09:30)
[2018-09-02] MEDS: DEXTROSE 10% WATER 1,000 ML IV SCH (10:28)
[2018-09-02] MEDS ORDERED: HYDROCODONE/ACETAMINOPHEN 5/325MG TABLET PO PRN (11:30)
[2018-09-02 12:51] LABS: HEPATITIS B SURFACE ANTIGEN NEGATIVE
[2018-09-02 13:21] LABS: HEPATITIS A AB IGM NEGATIVE (NEGATIVE)
[2018-09-02] MEDS: NEOMY SULF/BACITRAC ZN/POLY OINT 28GM TOP SCH (21:00)
[2018-09-02] MEDS: CEFTRIAXONE 1 G PREMIX 50 ML IV SCH (21:06)
[2018-09-03] MEDS: BLOOD SUGAR DIAGNOSTIC STRIP TEST SCH ×4 (07:30→21:36)
[2018-09-03 08:38] VITALS: BP 123/62
[2018-09-03] MEDS: DEXTROSE 10% WATER 1,000 ML IV SCH (08:44)
[2018-09-03] MEDS: NEOMY SULF/BACITRAC ZN/POLY OINT 28GM TOP SCH ×2 (09:00→21:00)
[2018-09-03] MEDS: CITRIC ACID/SODIUM CITRATE SOLN 30ML UDC PO SCH ×3 (09:00→17:00)
[2018-09-03 09:31] LABS: BASOPHILS % 0.7 % (0.0-2.0); EOSINOPHILS % 1.7 % (0.0-5.0); HEMATOCRIT. 37.8 % (42.0-52.0); MEAN CORPUSCULAR VOLUME 94.7 fL (80.0-94.0); MONOCYTES % 5.3 % (2.0-8.0); NEUTROPHILS % 77.3 % (40.0-76.0)
[2018-09-03 10:17] LABS: MEAN PLATELET VOLUME 8.3 fl (7.4-10.4); PLATELET 196 x1000/uL (130-400)
[2018-09-03] MEDS ORDERED: ALBUTEROL (0.083%) 2.5MG/3ML NEB HHN NR (11:45)
[2018-09-03 12:00] VITALS: BP 143/84
[2018-09-03 20:00] VITALS: BP 147/83
[2018-09-03] MEDS: CEFTRIAXONE 1 G PREMIX 50 ML IV SCH (21:21)
[2018-09-04 06:58] LABS: BASOPHILS % 0.7 % (0.0-2.0); EOSINOPHILS % 4.3 % (0.0-5.0); HEMATOCRIT. 36.3 % (42.0-52.0); HEMOGLOBIN. 11.7 g/dL (14.0-18.0); LYMPHOCYTES % 28.7 % (20.0-50.0); MEAN CORPUSCULAR VOLUME 93.4 fL (80.0-94.0); MEAN PLATELET VOLUME 7.6 fl (7.4-10.4); MONOCYTES % 7.8 % (2.0-8.0); NEUTROPHILS % 58.5 % (40.0-76.0); PLATELET 224 x1000/uL (130-400); RED BLOOD CELL COUNT 3.89 mill/uL (4.7-6.1)
[2018-09-04] MEDS: BLOOD SUGAR DIAGNOSTIC STRIP TEST SCH ×4 (07:39→20:35)
[2018-09-04 08:00] VITALS: BP 147/90
[2018-09-04] MEDS: SODIUM BICARBONATE 650 MG TABLET PO SCH ×3 (09:22→17:58)
[2018-09-04] MEDS: NEOMY SULF/BACITRAC ZN/POLY OINT 28GM TOP SCH ×2 (09:22→20:35)
[2018-09-04] MEDS: ALBUTEROL (0.083%) 2.5MG/3ML NEB HHN SCH ×2 (13:57→20:42)
[2018-09-04] MEDS: CEFTRIAXONE 1 G PREMIX 50 ML IV SCH (20:43)
[2018-09-05] MEDS: ALBUTEROL (0.083%) 2.5MG/3ML NEB HHN SCH ×4 (02:02→20:27)
[2018-09-05 07:07] LABS: BASOPHILS % 0.6 % (0.0-2.0); HEMATOCRIT. 36.5 % (42.0-52.0); HEMOGLOBIN. 11.7 g/dL (14.0-18.0); LYMPHOCYTES % 20.6 % (20.0-50.0); MEAN CORPUSCULAR HEMOGLOBIN 29.8 pg (28.0-32.0); MEAN CORPUSCULAR VOLUME 93.5 fL (80.0-94.0); MONOCYTES % 6.7 % (2.0-8.0); NEUTROPHILS % 69.1 % (40.0-76.0); RED CELL DISTRIBUTION WIDTH 16.7 % (11.6-14.6)
[2018-09-05] MEDS: BLOOD SUGAR DIAGNOSTIC STRIP TEST SCH ×4 (07:20→20:18)
[2018-09-05] MEDS ORDERED: SODIUM BICARBONATE 8.4% 1 MEQ/ML 50ML SYR IV SCH (09:00)
[2018-09-05] MEDS ORDERED: INSULIN REGULAR (HUMULIN R) UD 100 UNITS/ML SYR IV SCH (09:00)
[2018-09-05] MEDS ORDERED: DEXTROSE 50% WATER 50ML SYRINGE IV SCH (09:00)
[2018-09-05] MEDS: SODIUM BICARBONATE 650 MG TABLET PO SCH ×3 (09:55→17:34)
[2018-09-05] MEDS: NEOMY SULF/BACITRAC ZN/POLY OINT 28GM TOP SCH ×2 (09:55→20:18)
[2018-09-05 20:00] VITALS: BP 151/95
[2018-09-05] MEDS: HYDROMORPHONE HCL/PF 2MG/ML CPJ IV PRN (20:04)
[2018-09-05] MEDS: CEFTRIAXONE 1 G PREMIX 50 ML IV SCH (20:18)
[2018-09-05 22:00] VITALS: BP 125/72
[2018-09-06] VITALS (10 sets, daily range): BP systolic 129–155; BP diastolic 77–93
[2018-09-06] MEDS: ALBUTEROL (0.083%) 2.5MG/3ML NEB HHN SCH (00:39)
[2018-09-06 05:41] LABS: BASOPHILS % 0.4 % (0.0-2.0); EOSINOPHILS % 4.1 % (0.0-5.0); HEMATOCRIT. 35.8 % (42.0-52.0); HEMOGLOBIN. 11.5 g/dL (14.0-18.0); LYMPHOCYTES % 24.9 % (20.0-50.0); MEAN CORPUSCULAR HEMOGLOBIN 29.6 pg (28.0-32.0); MEAN PLATELET VOLUME 7.5 fl (7.4-10.4); MONOCYTES % 6.1 % (2.0-8.0); NEUTROPHILS % 64.5 % (40.0-76.0); PLATELET 184 x1000/uL (130-400); RED BLOOD CELL COUNT 3.89 mill/uL (4.7-6.1); RED CELL DISTRIBUTION WIDTH 16.9 % (11.6-14.6)
[2018-09-06] MEDS: HYDROMORPHONE HCL/PF 2MG/ML CPJ IV PRN (06:04)
[2018-09-06] MEDS: BLOOD SUGAR DIAGNOSTIC STRIP TEST SCH ×2 (07:30→12:45)
[2018-09-06] MEDS: NEOMY SULF/BACITRAC ZN/POLY OINT 28GM TOP SCH (09:00)
[2018-09-06] MEDS: SODIUM BICARBONATE 650 MG TABLET PO SCH ×2 (09:50→12:45)
[2018-09-06] MEDS ORDERED: INSULIN LISPRO 100 UNITS/ML SUBCUT NR (13:30)
[2018-09-06] MEDS ORDERED: INSULIN GLARGINE UD 100 UNITS/ML SYR SUBCUT NR (15:00)
[2018-09-07] MEDS ORDERED: INSU100V3 SUBCUT (12:37)
== END 2018-09-06 17:25 | disposition home or self-care (01) | DRG 420 ==
LOC: ER 11:06 → EDBEDREQ 15:08 → ENRESERV 15:31 → 5EST 16:25
PROVIDERS: ADMIT Internal Medicine; ATTEND Internal Medicine
PROC: B54MZZA Ultrasonography of Right Upper Extremity Veins, Guidance (ICD-10-PCS; principal; 2018-09-02)
PROC: 05HY33Z Insertion of Infusion Device into Upper Vein, Percutaneous Approach (ICD-10-PCS; 2018-09-02)
DX: E11.649 Type 2 diabetes mellitus with hypoglycemia without coma (principal); G93.41 Metabolic encephalopathy; E44.0 Moderate protein-calorie malnutrition; N17.9 Acute kidney failure, unspecified; D68.9 Coagulation defect, unspecified; E87.2 Acidosis; I12.0 Hypertensive chronic kidney disease with stage 5 chronic kidney disease or end stage renal disease; K86.1 Other chronic pancreatitis; N18.5 Chronic kidney disease, stage 5; E11.22 Type 2 diabetes mellitus with diabetic chronic kidney disease; K52.9 Noninfective gastroenteritis and colitis, unspecified; N39.0 Urinary tract infection, site not specified; E87.8 Other disorders of electrolyte and fluid balance, not elsewhere classified; E87.5 Hyperkalemia; S00.411A Abrasion of right ear, initial encounter; W18.39XA Other fall on same level, initial encounter; D64.9 Anemia, unspecified; E86.9 Volume depletion, unspecified; G40.909 Epilepsy, unspecified, not intractable, without status epilepticus; Z91.14 Patient's other noncompliance with medication regimen; Z99.2 Dependence on renal dialysis; Z88.6 Allergy status to analgesic agent; Z79.84 Long term (current) use of oral hypoglycemic drugs; Z79.899 Other long term (current) drug therapy; Z89.029 Acquired absence of unspecified finger(s); Y93.89 Activity, other specified; Y92.89 Other specified places as the place of occurrence of the external cause; Y99.8 Other external cause status; Z68.1 Body mass index [BMI] 19.9 or less, adult
CPT/HCPCS: 36415; 36569; 36600; 71045; 74176; 76937; 80048; 80305; 82140; 82375; 82575; 82805; 82962; 83036; 83605; 84134; 84484; 86705; 86709; 86803; 86850; 86900; 87340; 96361; 96374; 96375; 97116; 97162; 99291; C1725; C1893; G0482; J0696; J1170; J1815; J2405; J2765; J3490; J7030; J7040; J7070; J7611

== ENCOUNTER 2018-09-06 19:56 | Inpatient (IN) | payer MEDICAID ==
[~2018-09-06] VITALS: Ht 177.8 cm; Wt 72.6 kg
[2018-09-06 23:12] LABS: BASOPHILS % 0.3 % (0.0-2.0); EOSINOPHILS % 1.3 % (0.0-5.0); HEMATOCRIT. 37.6 % (42.0-52.0); HEMOGLOBIN. 12.1 g/dL (14.0-18.0); LYMPHOCYTES % 11.2 % (20.0-50.0); MEAN CORPUSCULAR HEMOGLOBIN 29.8 pg (28.0-32.0); MEAN CORPUSCULAR VOLUME 92.9 fL (80.0-94.0); MEAN PLATELET VOLUME 7.4 fl (7.4-10.4); MONOCYTES % 3.8 % (2.0-8.0); NEUTROPHILS % 83.4 % (40.0-76.0); PLATELET 205 x1000/uL (130-400); RED BLOOD CELL COUNT 4.05 mill/uL (4.7-6.1); RED CELL DISTRIBUTION WIDTH 16.4 % (11.6-14.6)
[2018-09-06 23:13] LABS: CHLORIDE 105 mEq/L (98-107)
[2018-09-07] MEDS ORDERED: DEXTROSE 50% WATER 50ML SYRINGE IV ONE ×4 (00:09→10:01)
[2018-09-07] MEDS ORDERED: ONDANSETRON HCL 4MG/2ML INJ IV PRN (10:45)
[2018-09-07] MEDS ORDERED: DEXT 10% WATER 1,000 ML IV SCH ×2 (11:19→13:30)
[2018-09-07] MEDS ORDERED: SODIUM BICARBONATE 8.4% 1 MEQ/ML 50ML SYR IV NR (11:20)
[2018-09-07 12:00] VITALS: BP 149/83
[2018-09-07] MEDS ORDERED: INSU100V3 SUBCUT (12:37)
[2018-09-07 12:44] VITALS: BP 149/83
[2018-09-07 16:00] VITALS: BP 181/87
[2018-09-07 17:26] VITALS: BP 130/59
[2018-09-07] MEDS: BLOOD SUGAR DIAGNOSTIC STRIP TEST SCH ×3 (17:46→22:25)
[2018-09-07] MEDS: INSULIN LISPRO 100 UNITS/ML SUBCUT SCH ×2 (17:58→21:00)
[2018-09-07 20:00] VITALS: BP 113/75
[2018-09-07] MEDS: DEXTROSE 50% WATER 50ML SYRINGE IV PRN (22:25)
[2018-09-07] MEDS: ACETAMINOPHEN 325MG TABLET PO PRN (23:27)
[2018-09-08] MEDS: ALBUTEROL (0.083%) 2.5MG/3ML NEB HHN SCH ×4 (00:35→20:40)
[2018-09-08 04:00] VITALS: BP 153/82
[2018-09-08] MEDS: INSULIN LISPRO 100 UNITS/ML SUBCUT SCH ×4 (06:36→20:46)
[2018-09-08 07:22] LABS: BASOPHILS % 0.4 % (0.0-2.0); EOSINOPHILS % 3.4 % (0.0-5.0); HEMATOCRIT. 37.9 % (42.0-52.0); HEMOGLOBIN. 12.3 g/dL (14.0-18.0); LYMPHOCYTES % 24.2 % (20.0-50.0); MEAN CORPUSCULAR VOLUME 92.4 fL (80.0-94.0); MEAN PLATELET VOLUME 7.9 fl (7.4-10.4); MONOCYTES % 5.5 % (2.0-8.0); NEUTROPHILS % 66.5 % (40.0-76.0); PLATELET 184 x1000/uL (130-400); RED BLOOD CELL COUNT 4.11 mill/uL (4.7-6.1); RED CELL DISTRIBUTION WIDTH 16.9 % (11.6-14.6)
[2018-09-08 08:00] VITALS: BP 137/83
[2018-09-08] MEDS ORDERED: DEXTROSE 50% WATER 50ML SYRINGE IV NR (09:55)
[2018-09-08] MEDS ORDERED: INSULIN REGULAR (HUMULIN R) UD 100 UNITS/ML SYR IV STA (09:55)
[2018-09-08] MEDS ORDERED: SODIUM BICARBONATE 8.4% 1 MEQ/ML 50ML SYR IV NR (09:55)
[2018-09-08] MEDS ORDERED: SODIUM POLYSTYRENE SULFONATE 15 G/60 ML BOT PO NR (10:00)
[2018-09-08] MEDS: DEXTROSE 5% WATER 1,000 ML IV SCH ×2 (10:00→10:19)
[2018-09-08] MEDS ORDERED: INSULIN REGULAR (HUMULIN R) 300UNITS/3ML IV NR (10:15)
[2018-09-08] MEDS: BLOOD SUGAR DIAGNOSTIC STRIP TEST SCH ×3 (11:30→20:46)
[2018-09-08 12:00] VITALS: BP 156/63
[2018-09-08 16:00] VITALS: BP 176/91
[2018-09-08 20:00] VITALS: BP 126/75
[2018-09-08] MEDS: ACETAMINOPHEN 325MG TABLET PO PRN (20:42)
[2018-09-09] VITALS: BP 121/81
[2018-09-09] MEDS: ALBUTEROL (0.083%) 2.5MG/3ML NEB HHN SCH ×2 (00:01→04:00)
[2018-09-09 04:00] VITALS: BP 142/67
[2018-09-09] MEDS: DEXTROSE 5% WATER 1,000 ML IV SCH (06:00)
[2018-09-09] MEDS: BLOOD SUGAR DIAGNOSTIC STRIP TEST SCH ×4 (06:09→20:38)
[2018-09-09] MEDS: INSULIN LISPRO 100 UNITS/ML SUBCUT SCH ×4 (06:14→20:33)
[2018-09-09 08:00] VITALS: BP 132/77
[2018-09-09 09:06] LABS: BASOPHILS % 0.6 % (0.0-2.0); EOSINOPHILS % 2.3 % (0.0-5.0); LYMPHOCYTES % 28.6 % (20.0-50.0); MEAN CORPUSCULAR HEMOGLOBIN 30.1 pg (28.0-32.0); MEAN CORPUSCULAR VOLUME 92.6 fL (80.0-94.0); MONOCYTES % 6.3 % (2.0-8.0); NEUTROPHILS % 62.2 % (40.0-76.0); PLATELET 177 x1000/uL (130-400); RED BLOOD CELL COUNT 3.99 mill/uL (4.7-6.1); RED CELL DISTRIBUTION WIDTH 16.4 % (11.6-14.6)
[2018-09-09] MEDS ORDERED: INSULIN GLARGINE UD 100 UNITS/ML SYR SUBCUT SCH (10:00)
[2018-09-09] MEDS: METOCLOPRAMIDE HCL 5MG TABLET PO SCH ×2 (14:48→20:26)
[2018-09-09 16:00] VITALS: BP 146/68
[2018-09-09 20:00] VITALS: BP 147/73
[2018-09-09] MEDS: NEOMY SULF/BACITRAC ZN/POLY OINT 28GM TOP SCH (20:25)
[2018-09-10] VITALS (7 sets, daily range): BP systolic 118–138; BP diastolic 63–83
[2018-09-10] MEDS: ACETAMINOPHEN 325MG TABLET PO PRN ×2 (00:42→21:08)
[2018-09-10] MEDS: BLOOD SUGAR DIAGNOSTIC STRIP TEST SCH ×4 (05:07→21:00)
[2018-09-10] MEDS: METOCLOPRAMIDE HCL 5MG TABLET PO SCH ×3 (05:26→21:03)
[2018-09-10] MEDS: INSULIN LISPRO 100 UNITS/ML SUBCUT SCH ×5 (05:29→21:00)
[2018-09-10] MEDS: NEOMY SULF/BACITRAC ZN/POLY OINT 28GM TOP SCH ×2 (08:38→21:03)
[2018-09-10] MEDS ORDERED: INSULIN LISPRO 100 UNITS/ML SUBCUT NR ×2 (13:00→15:00)
[2018-09-10 13:31] LABS: BASOPHILS % 0.5 % (0.0-2.0); EOSINOPHILS % 2.2 % (0.0-5.0); HEMATOCRIT. 36.5 % (42.0-52.0); HEMOGLOBIN. 11.6 g/dL (14.0-18.0); LYMPHOCYTES % 21.6 % (20.0-50.0); MEAN CORPUSCULAR HEMOGLOBIN 29.7 pg (28.0-32.0); MEAN CORPUSCULAR VOLUME 93.5 fL (80.0-94.0); MONOCYTES % 4.6 % (2.0-8.0); NEUTROPHILS % 71.1 % (40.0-76.0); PLATELET 186 x1000/uL (130-400); RED CELL DISTRIBUTION WIDTH 16.5 % (11.6-14.6)
[2018-09-10] MEDS ORDERED: INSULIN GLARGINE UD 100 UNITS/ML SYR SUBCUT NR (14:00)
[2018-09-10] MEDS ORDERED: SODIUM BICARBONATE 8.4% 1 MEQ/ML 50ML SYR IV NR (15:00)
[2018-09-10] MEDS ORDERED: ALBUTEROL (0.083%) 2.5MG/3ML NEB HHN NR (15:00)
[2018-09-10] MEDS: DEXTROSE 50% WATER 50ML SYRINGE IV PRN ×2 (16:51→21:58)
[2018-09-10] MEDS: INSULIN GLARGINE UD 100 UNITS/ML SYR SUBCUT SCH (22:00)
[2018-09-11] VITALS: BP 144/65
[2018-09-11] MEDS: SODIUM POLYSTYRENE SULFONATE 15 G/60 ML BOT PO NR ×2 (00:31→00:47)
[2018-09-11 04:00] VITALS: BP 130/65
[2018-09-11] MEDS: BLOOD SUGAR DIAGNOSTIC STRIP TEST SCH ×4 (04:55→21:00)
[2018-09-11] MEDS: INSULIN LISPRO 100 UNITS/ML SUBCUT SCH ×5 (05:18→21:00)
[2018-09-11] MEDS: METOCLOPRAMIDE HCL 5MG TABLET PO SCH ×3 (05:19→22:00)
[2018-09-11] MEDS: INSULIN GLARGINE UD 100 UNITS/ML SYR SUBCUT SCH ×2 (07:54→22:00)
[2018-09-11 08:00] VITALS: BP 137/77
[2018-09-11 08:01] LABS: BASOPHILS % 0.4 % (0.0-2.0); EOSINOPHILS % 1.4 % (0.0-5.0); HEMOGLOBIN. 12.2 g/dL (14.0-18.0); LYMPHOCYTES % 22.3 % (20.0-50.0); MEAN CORPUSCULAR HEMOGLOBIN 30.2 pg (28.0-32.0); MEAN CORPUSCULAR VOLUME 91.8 fL (80.0-94.0); MEAN PLATELET VOLUME 8.2 fl (7.4-10.4); MONOCYTES % 5.5 % (2.0-8.0); NEUTROPHILS % 70.4 % (40.0-76.0); PLATELET 214 x1000/uL (130-400); RED BLOOD CELL COUNT 4.03 mill/uL (4.7-6.1); RED CELL DISTRIBUTION WIDTH 16.5 % (11.6-14.6)
[2018-09-11] MEDS: NEOMY SULF/BACITRAC ZN/POLY OINT 28GM TOP SCH ×3 (09:23→21:00)
[2018-09-11 16:00] VITALS: BP 154/61
[2018-09-11 20:00] VITALS: BP 146/75
[2018-09-11] MEDS ORDERED: SODIUM POLYSTYRENE SULFONATE 15 G/60 ML BOT PO NR (22:00)
[2018-09-12] MEDS: ACETAMINOPHEN 325MG TABLET PO PRN (00:07)
[2018-09-12 04:00] VITALS: BP 110/71
[2018-09-12] MEDS: BLOOD SUGAR DIAGNOSTIC STRIP TEST SCH ×4 (07:10→20:19)
[2018-09-12] MEDS: METOCLOPRAMIDE HCL 5MG TABLET PO SCH ×3 (07:14→21:27)
[2018-09-12] MEDS: INSULIN LISPRO 100 UNITS/ML SUBCUT SCH ×4 (07:40→20:19)
[2018-09-12] MEDS ORDERED: SODIUM BICARBONATE 8.4% 1 MEQ/ML 50ML SYR IV NR (08:30)
[2018-09-12] MEDS: SODIUM POLYSTYRENE SULFONATE 15 G/60 ML BOT PO NR ×2 (08:30→20:02)
[2018-09-12] MEDS: CITRIC ACID/SODIUM CITRATE SOLN 30ML UDC PO SCH ×2 (09:24→17:17)
[2018-09-12] MEDS: NEOMY SULF/BACITRAC ZN/POLY OINT 28GM TOP SCH ×2 (09:24→21:00)
[2018-09-12 11:29] LABS: BASOPHILS % 0.9 % (0.0-2.0); EOSINOPHILS % 1.9 % (0.0-5.0); HEMATOCRIT. 33.9 % (42.0-52.0); LYMPHOCYTES % 18.6 % (20.0-50.0); MEAN CORPUSCULAR HEMOGLOBIN 29.8 pg (28.0-32.0); MEAN CORPUSCULAR VOLUME 91.7 fL (80.0-94.0); MEAN PLATELET VOLUME 7.9 fl (7.4-10.4); MONOCYTES % 5.1 % (2.0-8.0); NEUTROPHILS % 73.5 % (40.0-76.0); PLATELET 207 x1000/uL (130-400); RED CELL DISTRIBUTION WIDTH 16.4 % (11.6-14.6)
[2018-09-12] MEDS: INSULIN GLARGINE UD 100 UNITS/ML SYR SUBCUT SCH ×2 (12:23→21:27)
[2018-09-12 20:00] VITALS: BP 140/80
[2018-09-13] VITALS: BP 144/66
[2018-09-13 04:00] VITALS: BP 135/70
[2018-09-13] MEDS: METOCLOPRAMIDE HCL 5MG TABLET PO SCH ×2 (06:26→13:48)
[2018-09-13] MEDS: BLOOD SUGAR DIAGNOSTIC STRIP TEST SCH ×3 (06:26→17:10)
[2018-09-13] MEDS: INSULIN LISPRO 100 UNITS/ML SUBCUT SCH ×8 (06:37→17:40)
[2018-09-13 08:00] VITALS: BP 119/78
[2018-09-13] MEDS: NEOMY SULF/BACITRAC ZN/POLY OINT 28GM TOP SCH (09:26)
[2018-09-13] MEDS: CITRIC ACID/SODIUM CITRATE SOLN 30ML UDC PO SCH ×2 (09:26→18:08)
[2018-09-13 11:28] LABS: BASOPHILS % 0.7 % (0.0-2.0); EOSINOPHILS % 1.9 % (0.0-5.0); HEMATOCRIT. 33.4 % (42.0-52.0); HEMOGLOBIN. 10.9 g/dL (14.0-18.0); LYMPHOCYTES % 21.4 % (20.0-50.0); MEAN CORPUSCULAR VOLUME 91.5 fL (80.0-94.0); MEAN PLATELET VOLUME 7.9 fl (7.4-10.4); PLATELET 205 x1000/uL (130-400); RED BLOOD CELL COUNT 3.65 mill/uL (4.7-6.1); RED CELL DISTRIBUTION WIDTH 16.5 % (11.6-14.6)
[2018-09-13 12:00] VITALS: BP 131/74
[2018-09-13] MEDS: INSULIN GLARGINE UD 100 UNITS/ML SYR SUBCUT SCH (13:42)
[2018-09-13 16:00] VITALS: BP 128/71
[2018-09-13 16:12] VITALS: BP 131/74
== END 2018-09-13 18:47 | disposition home health service (06) | DRG 420 ==
LOC: ER 19:56 → 8WST 09-07 01:29 → ENRESERV 09-07 10:02
PROVIDERS: ADMIT Internal Medicine; ATTEND Internal Medicine
DX: E11.649 Type 2 diabetes mellitus with hypoglycemia without coma (principal); G93.41 Metabolic encephalopathy; N17.9 Acute kidney failure, unspecified; E44.0 Moderate protein-calorie malnutrition; E11.22 Type 2 diabetes mellitus with diabetic chronic kidney disease; N18.4 Chronic kidney disease, stage 4 (severe); E87.5 Hyperkalemia; D64.9 Anemia, unspecified; G40.909 Epilepsy, unspecified, not intractable, without status epilepticus; I12.9 Hypertensive chronic kidney disease with stage 1 through stage 4 chronic kidney disease, or unspecified chronic kidney disease; Z79.4 Long term (current) use of insulin; Z91.14 Patient's other noncompliance with medication regimen; Z91.19 Patient's noncompliance with other medical treatment and regimen; Z68.23 Body mass index [BMI] 23.0-23.9, adult; Z88.8 Allergy status to other drugs, medicaments and biological substances; Z88.1 Allergy status to other antibiotic agents; Z89.022 Acquired absence of left finger(s)
CPT/HCPCS: 36415; 80048; 82962; 84132; 84134; 96374; 96376; 97162; 97164; 97166; 99285; C1893; J1815; J3490; J7070; J7611; J8597

== ENCOUNTER 2018-09-16 19:46 | Inpatient (IN) | payer MEDICAID ==
[~2018-09-16] VITALS: Ht 170.2 cm; Wt 58.1 kg
[2018-09-16] MEDS ORDERED: SODIUM CHLORIDE 0.9% 1,000 ML IV ONE (21:42)
[2018-09-16 23:07] LABS: BASOPHILS % 1.1 % (0.0-2.0); HEMATOCRIT. 32.8 % (42.0-52.0); HEMOGLOBIN. 10.4 g/dL (14.0-18.0); LYMPHOCYTES % 15.1 % (20.0-50.0); MEAN CORPUSCULAR HEMOGLOBIN 30.4 pg (28.0-32.0); MEAN CORPUSCULAR VOLUME 96.1 fL (80.0-94.0); MEAN PLATELET VOLUME 8.7 fl (7.4-10.4); MONOCYTES % 5.6 % (2.0-8.0); NEUTROPHILS % 76.2 % (40.0-76.0); PLATELET 221 x1000/uL (130-400); RED BLOOD CELL COUNT 3.42 mill/uL (4.7-6.1); RED CELL DISTRIBUTION WIDTH 17.2 % (11.6-14.6)
[2018-09-16 23:08] LABS: CHLORIDE 119 mEq/L (98-107)
[2018-09-16 23:10] LABS: PROTHROMBIN TIME 9.8 sec (9.1-11.1)
[2018-09-16 23:12] LABS: ETHANOL BLOOD < 10 mg/dL
[2018-09-17] VITALS (38 sets, daily range): BP systolic 87–168; BP diastolic 44–92
[2018-09-17] MEDS ORDERED: SODIUM BICARBONATE 8.4% 1 MEQ/ML 50ML SYR IV NR
[2018-09-17] MEDS ORDERED: DEXTROSE 50% WATER 50ML SYRINGE IV NR
[2018-09-17] MEDS ORDERED: INSULIN REGULAR (HUMULIN R) 300UNITS/3ML IV NR (01:00)
[2018-09-17] MEDS ORDERED: CALCIUM CHLORIDE 1GM/10ML SYR IV NR (01:00)
[2018-09-17] MEDS ORDERED: DEXTROSE 50% WATER 50ML SYRINGE IV ONE ×4 (05:17→18:05)
[2018-09-17 06:26] LABS: CHLORIDE 121 mEq/L (98-107)
[2018-09-17] MEDS ORDERED: DEXT 10% WATER 1,000 ML IV SCH (06:45)
[2018-09-17] MEDS ORDERED: NOREPINEPHRINE 4 MG in DEXT 5% WATER 246 ML IV ONE (07:45)
[2018-09-17] MEDS ORDERED: NOREPINEPHRINE 4MG/250ML PMX 250 ML IV ONE (07:53)
[2018-09-17] MEDS ORDERED: PIPERACILLIN/TAZ 3.375G PREMIX 50 ML IV ONE (08:00)
[2018-09-17] MEDS ORDERED: SODIUM CHLORIDE 0.9% 1000ML BAG (SEPSIS BOLUS) IV ONE (08:00)
[2018-09-17] MEDS ORDERED: VANCOMYCIN 1 G PREMIX 200 ML IV ONE (08:00)
[2018-09-17] MEDS ORDERED: LORAZEPAM 2MG/ML CPJ IV ONE ×2 (09:00)
[2018-09-17] MEDS ORDERED: SODIUM BICARBONATE 8.4% 1 MEQ/ML 50ML SYR IV SCH (13:00)
[2018-09-17] MEDS ORDERED: INSULIN REGULAR (HUMULIN R) 300UNITS/3ML IV SCH (13:00)
[2018-09-17] MEDS ORDERED: CALCIUM CHLORIDE 1,000 MG in DEXT 5% WATER 90 ML IV SCH (14:00)
[2018-09-17] MEDS ORDERED: HEPARIN SODIUM 1,000 UNIT/1ML VIAL IV ONE (14:15)
[2018-09-17] MEDS: PIPERACILLIN/TAZ 2.25G PREMIX 50 ML IV SCH (15:05)
[2018-09-17 16:14] LABS: FOLIC ACID (FOLATE) SERUM 4.2 ng/mL (>5.38)
[2018-09-17] MEDS: BLOOD SUGAR DIAGNOSTIC STRIP TEST SCH ×7 (19:35→23:00)
[2018-09-17] MEDS: DEXT IV SCH (19:47)
[2018-09-17] MEDS: WATER IV SCH (19:47)
[2018-09-17] MEDS: DEXTROSE 50% IV SCH (19:47)
[2018-09-18] VITALS (25 sets, daily range): BP systolic 102–180; BP diastolic 56–110
[2018-09-18] MEDS: PIPERACILLIN/TAZ 2.25G PREMIX 50 ML IV SCH ×4 (00:06→23:25)
[2018-09-18] MEDS: BLOOD SUGAR DIAGNOSTIC STRIP TEST SCH ×10 (01:46→23:31)
[2018-09-18 05:07] LABS: CLARITY URINE CLEAR (CLEAR); COLOR URINE YELLOW (YELLOW); KETONES URINE NEGATIVE (NEGATIVE); LEUKOCYTE ESTERASE URINE TRACE (NEGATIVE); NITRITE URINE NEGATIVE (NEGATIVE); OCCULT BLOOD URINE 2+ (NEGATIVE); PROTEIN URINE 3+ (NEGATIVE); SPECIFIC GRAVITY URINE 1.009 (1.005-1.030); UROBILINOGEN URINE 0.2 E.U./dL (0.2-1.0)
[2018-09-18 05:18] LABS: *AMPHETAMINES SCREEN URINE NEGATIVE (NEGATIVE); *BARBITURATES SCREEN URINE NEGATIVE (NEGATIVE); *BENZODIAZEPINES SCREEN URINE NEGATIVE (NEGATIVE)
[2018-09-18 05:19] LABS: *COCAINE SCREEN URINE NEGATIVE (NEGATIVE); CANNABINOID URINE SCREEN NEGATIVE (NEGATIVE); METHADONE URINE SCREEN NEGATIVE (NEGATIVE); OPIATES URINE SCREEN NEGATIVE (NEGATIVE); PHENCYCLIDINE URINE SCREEN NEGATIVE (NEGATIVE)
[2018-09-18 05:51] LABS: BASOPHILS % 0.6 % (0.0-2.0); EOSINOPHILS % 0.9 % (0.0-5.0); HEMATOCRIT. 31.6 % (42.0-52.0); HEMOGLOBIN. 10.5 g/dL (14.0-18.0); MEAN CORPUSCULAR HEMOGLOBIN 30.2 pg (28.0-32.0); MEAN CORPUSCULAR VOLUME 91.3 fL (80.0-94.0); MEAN PLATELET VOLUME 8.2 fl (7.4-10.4); MONOCYTES % 5.3 % (2.0-8.0); NEUTROPHILS % 85.2 % (40.0-76.0); PLATELET 225 x1000/uL (130-400); RED BLOOD CELL COUNT 3.47 mill/uL (4.7-6.1); RED CELL DISTRIBUTION WIDTH 17.3 % (11.6-14.6)
[2018-09-18 05:53] LABS: PHOSPHORUS 4.6 mg/dL (2.5-4.9)
[2018-09-18] MEDS: WATER IV SCH (12:11)
[2018-09-18] MEDS: DEXT IV SCH (12:11)
[2018-09-18] MEDS: DEXTROSE 50% IV SCH (12:11)
[2018-09-18] MEDS ORDERED: MAGNESIUM 2 G PREMIX 50 ML IV NR (13:00)
[2018-09-18] MEDS: LORAZEPAM 2MG/ML CPJ IV PRN (20:27)
[2018-09-18] MEDS ORDERED: DEXTROSE 50% WATER 50ML SYRINGE IV PRN (22:45)
[2018-09-18] MEDS ORDERED: DEXT 10% WATER 1,000 ML IV SCH (23:00)
[2018-09-18] MEDS: INSULIN LISPRO 100 UNITS/ML SUBCUT SCH (23:31)
[2018-09-19] VITALS (24 sets, daily range): BP systolic 80–166; BP diastolic 42–101
[2018-09-19] MEDS: BLOOD SUGAR DIAGNOSTIC STRIP TEST SCH ×9 (01:31→18:42)
[2018-09-19 05:41] LABS: BASOPHILS % 0.7 % (0.0-2.0); EOSINOPHILS % 2.7 % (0.0-5.0); HEMATOCRIT. 29.8 % (42.0-52.0); HEMOGLOBIN. 9.8 g/dL (14.0-18.0); LYMPHOCYTES % 20.8 % (20.0-50.0); MEAN CORPUSCULAR HEMOGLOBIN 30.2 pg (28.0-32.0); MEAN CORPUSCULAR VOLUME 91.8 fL (80.0-94.0); MEAN PLATELET VOLUME 8.2 fl (7.4-10.4); MONOCYTES % 10.8 % (2.0-8.0); PLATELET 160 x1000/uL (130-400); RED BLOOD CELL COUNT 3.25 mill/uL (4.7-6.1); RED CELL DISTRIBUTION WIDTH 17.1 % (11.6-14.6)
[2018-09-19] MEDS: PIPERACILLIN/TAZ 2.25G PREMIX 50 ML IV SCH ×3 (06:48→23:23)
[2018-09-19] MEDS: INSULIN LISPRO 100 UNITS/ML SUBCUT SCH ×4 (08:20→21:00)
[2018-09-19] MEDS ORDERED: HEPARIN SODIUM 1,000 UNIT/1ML VIAL IV NR (11:15)
[2018-09-19] MEDS: DEXTROSE 5% WATER 1,000 ML IV SCH (23:24)
[2018-09-20] VITALS (19 sets, daily range): BP systolic 114–163; BP diastolic 42–102
[2018-09-20] MEDS: BLOOD SUGAR DIAGNOSTIC STRIP TEST SCH ×10 (01:40→18:10)
[2018-09-20 05:41] LABS: BASOPHILS % 0.8 % (0.0-2.0); EOSINOPHILS % 2.3 % (0.0-5.0); HEMATOCRIT. 30.3 % (42.0-52.0); LYMPHOCYTES % 21.5 % (20.0-50.0); MEAN CORPUSCULAR HEMOGLOBIN 29.9 pg (28.0-32.0); MEAN CORPUSCULAR VOLUME 90.3 fL (80.0-94.0); MEAN PLATELET VOLUME 7.7 fl (7.4-10.4); MONOCYTES % 8.8 % (2.0-8.0); NEUTROPHILS % 66.6 % (40.0-76.0); PLATELET 184 x1000/uL (130-400); RED BLOOD CELL COUNT 3.36 mill/uL (4.7-6.1); RED CELL DISTRIBUTION WIDTH 16.9 % (11.6-14.6)
[2018-09-20] MEDS: PIPERACILLIN/TAZ 2.25G PREMIX 50 ML IV SCH ×2 (06:23→15:40)
[2018-09-20] MEDS: INSULIN LISPRO 100 UNITS/ML SUBCUT SCH ×3 (08:20→18:52)
[2018-09-20] MEDS: LORAZEPAM 2MG/ML CPJ IV PRN ×2 (14:05→22:18)
[2018-09-20] MEDS: FOLIC ACID/VITAMIN B COMP W-C TABLET PO SCH (18:42)
[2018-09-21] VITALS (21 sets, daily range): BP systolic 112–163; BP diastolic 41–116
[2018-09-21] MEDS: PIPERACILLIN/TAZ 2.25G PREMIX 50 ML IV SCH ×4 (00:13→23:22)
[2018-09-21] MEDS: DEXTROSE 5% WATER 1,000 ML IV SCH ×2 (00:14→23:20)
[2018-09-21 05:23] LABS: PROLACTIN 6.3 ng/mL (4.0-15.2)
[2018-09-21] MEDS: INSULIN LISPRO 100 UNITS/ML SUBCUT SCH ×4 (07:20→21:00)
[2018-09-21 08:05] LABS: BASOPHILS % 0.8 % (0.0-2.0); EOSINOPHILS % 3.2 % (0.0-5.0); HEMATOCRIT. 27.7 % (42.0-52.0); HEMOGLOBIN. 9.1 g/dL (14.0-18.0); LYMPHOCYTES % 25.9 % (20.0-50.0); MEAN CORPUSCULAR HEMOGLOBIN 29.8 pg (28.0-32.0); MEAN CORPUSCULAR VOLUME 90.5 fL (80.0-94.0); MEAN PLATELET VOLUME 8.3 fl (7.4-10.4); MONOCYTES % 7.4 % (2.0-8.0); NEUTROPHILS % 62.7 % (40.0-76.0); PLATELET 163 x1000/uL (130-400); RED BLOOD CELL COUNT 3.06 mill/uL (4.7-6.1); RED CELL DISTRIBUTION WIDTH 16.5 % (11.6-14.6)
[2018-09-21 10:16] LABS: T4 FREE 1.03 ng/dL (0.76-1.46)
[2018-09-21] MEDS: FOLIC ACID/VITAMIN B COMP W-C TABLET PO SCH (12:13)
[2018-09-21] MEDS: BLOOD SUGAR DIAGNOSTIC STRIP TEST SCH ×4 (12:33→21:14)
[2018-09-21 13:13] LABS: C-PEPTIDE 1.9 ng/mL (1.1-4.4)
[2018-09-21 14:24] LABS: INSULIN 2.6 uIU/mL (2.6-24.9)
[2018-09-22] VITALS: BP 121/65
[2018-09-22 02:00] VITALS: BP 133/75
[2018-09-22 04:00] VITALS: BP 134/70
[2018-09-22 06:00] VITALS: BP 140/73
[2018-09-22] MEDS: PIPERACILLIN/TAZ 2.25G PREMIX 50 ML IV SCH (06:16)
[2018-09-22] MEDS: BLOOD SUGAR DIAGNOSTIC STRIP TEST SCH (06:21)
[2018-09-22] MEDS: INSULIN LISPRO 100 UNITS/ML SUBCUT SCH (07:20)
[2018-09-22 07:21] LABS: BASOPHILS % 1.1 % (0.0-2.0); EOSINOPHILS % 2.7 % (0.0-5.0); HEMATOCRIT. 28.6 % (42.0-52.0); HEMOGLOBIN. 9.4 g/dL (14.0-18.0); LYMPHOCYTES % 33.3 % (20.0-50.0); MEAN CORPUSCULAR HEMOGLOBIN 30.1 pg (28.0-32.0); MEAN CORPUSCULAR VOLUME 91.9 fL (80.0-94.0); MEAN PLATELET VOLUME 8.2 fl (7.4-10.4); MONOCYTES % 9.5 % (2.0-8.0); NEUTROPHILS % 53.4 % (40.0-76.0); PLATELET 147 x1000/uL (130-400); RED BLOOD CELL COUNT 3.11 mill/uL (4.7-6.1); RED CELL DISTRIBUTION WIDTH 16.8 % (11.6-14.6)
[2018-09-22 08:00] VITALS: BP 152/89
[2018-09-22] MEDS: FOLIC ACID/VITAMIN B COMP W-C TABLET PO SCH (08:41)
[2018-09-22 09:17] VITALS: BP 134/73
== END 2018-09-22 10:05 | disposition home or self-care (01) | DRG 420 ==
LOC: ER 19:46 → CVICU 09-17 01:07 → CANRESERV 09-17 03:17 → ENRESERV 09-17 03:17 → EDBEDREQSVC 09-17 05:55 → EDBEDREQTM 09-17 05:55 → ENRESERV 09-17 09:50 → 3WST 09-20 17:24
PROVIDERS: ADMIT Internal Medicine; ATTEND Internal Medicine
PROC: 5A1D70Z Performance of Urinary Filtration, Intermittent, Less than 6 Hours Per Day (ICD-10-PCS; principal; 2018-09-17)
PROC: 02HV33Z Insertion of Infusion Device into Superior Vena Cava, Percutaneous Approach (ICD-10-PCS; 2018-09-17)
PROC: B548ZZA Ultrasonography of Superior Vena Cava, Guidance (ICD-10-PCS; 2018-09-17)
PROC: 5A1D70Z Performance of Urinary Filtration, Intermittent, Less than 6 Hours Per Day (ICD-10-PCS; 2018-09-19)
PROC: 5A1D70Z Performance of Urinary Filtration, Intermittent, Less than 6 Hours Per Day (ICD-10-PCS; 2018-09-21)
DX: E11.649 Type 2 diabetes mellitus with hypoglycemia without coma (principal); G92 Toxic encephalopathy; E46 Unspecified protein-calorie malnutrition; E11.22 Type 2 diabetes mellitus with diabetic chronic kidney disease; N17.9 Acute kidney failure, unspecified; E87.2 Acidosis; N18.6 End stage renal disease; I16.0 Hypertensive urgency; E87.5 Hyperkalemia; S09.90XA Unspecified injury of head, initial encounter; W07.XXXA Fall from chair, initial encounter; R00.1 Bradycardia, unspecified; I13.11 Hypertensive heart and chronic kidney disease without heart failure, with stage 5 chronic kidney disease, or end stage renal disease; D63.1 Anemia in chronic kidney disease; R74.0 Nonspecific elevation of levels of transaminase and lactic acid dehydrogenase [LDH]; G40.909 Epilepsy, unspecified, not intractable, without status epilepticus; R79.89 Other specified abnormal findings of blood chemistry; E53.8 Deficiency of other specified B group vitamins; F17.200 Nicotine dependence, unspecified, uncomplicated; Z91.14 Patient's other noncompliance with medication regimen; Z91.19 Patient's noncompliance with other medical treatment and regimen; Z99.2 Dependence on renal dialysis; Y93.89 Activity, other specified; Y92.89 Other specified places as the place of occurrence of the external cause; Y99.8 Other external cause status; Z88.6 Allergy status to analgesic agent; Z68.20 Body mass index [BMI] 20.0-20.9, adult
CPT/HCPCS: 36415; 36569; 70551; 71045; 76937; 80048; 80305; 82140; 82533; 82607; 82728; 82746; 82947; 82962; 83001; 83002; 83036; 83525; 83540; 83550; 83605; 83735; 84100; 84146; 84403; 84439; 84443; 84481; 84484; 84681; 86803; 87340; 93005; 93306; 96374; 96375; 99291; C1752; J1644; J1815; J2060; J2543; J3370; J3475; J3490; J7030; J7040; J7060; J7070

== ENCOUNTER 2018-09-28 13:31 | Inpatient (IN) | payer MEDICAID ==
[~2018-09-28] VITALS: Ht 170.2 cm; Wt 54.4 kg
[2018-09-28] MEDS ORDERED: VANCOMYCIN 1 G PREMIX 200 ML IV ONE (13:45)
[2018-09-28] MEDS ORDERED: PIPERACILLIN/TAZ 3.375G PREMIX 50 ML IV ONE (13:45)
[2018-09-28] MEDS ORDERED: METRONIDAZOLE 500 MG PREMIX 100 ML IV ONE (13:45)
[2018-09-28] MEDS ORDERED: SODIUM CHLORIDE 0.9% 1000ML BAG (SEPSIS BOLUS) IV ONE (13:45)
[2018-09-28] MEDS ORDERED: LORAZEPAM 2MG/ML CPJ IM STA (14:41)
[2018-09-28 15:06] LABS: HEMOGLOBIN. 8.8 g/dL (14.0-18.0); MEAN CORPUSCULAR HEMOGLOBIN 30.5 pg (28.0-32.0); MEAN CORPUSCULAR VOLUME 96.9 fL (80.0-94.0); MEAN PLATELET VOLUME 8.8 fl (7.4-10.4); PLATELET 128 x1000/uL (130-400); RED CELL DISTRIBUTION WIDTH 17.4 % (11.6-14.6)
[2018-09-28 15:18] LABS: CHLORIDE 126 mEq/L (98-107)
[2018-09-28 15:23] LABS: ETHANOL BLOOD < 10 mg/dL
[2018-09-28] MEDS ORDERED: DOPAMINE 400MG/250ML PREMIX 250 ML IV ONE (15:30)
[2018-09-28] MEDS ORDERED: CALCIUM GLUCONATE 100MG/ML 10ML VIAL IV ONE (15:45)
[2018-09-28] MEDS ORDERED: ALBUTEROL (0.083%) 2.5MG/3ML NEB HHN ONE (15:45)
[2018-09-28] MEDS ORDERED: SODIUM BICARBONATE 8.4% 1 MEQ/ML 50ML SYR IV ONE (15:45)
[2018-09-28] MEDS ORDERED: DEXTROSE 50% WATER 50ML SYRINGE IV ONE (15:45)
[2018-09-28] MEDS ORDERED: INSULIN REGULAR (HUMULIN R) 300UNITS/3ML IV ONE (15:45)
[2018-09-28] MEDS ORDERED: SODIUM POLYSTYRENE SULFONATE 15 G/60 ML BOT PO ONE (15:45)
[2018-09-28 15:56] LABS: PLATELET ESTIMATE DECREASED
[2018-09-28] MEDS ORDERED: DEXTROSE 50% WATER 50ML SYRINGE IV PRN (17:15)
[2018-09-28] MEDS ORDERED: ONDANSETRON HCL 4MG/2ML INJ IV PRN (17:15)
[2018-09-28] MEDS: INSULIN LISPRO 100 UNITS/ML SUBCUT SCH (18:20)
[2018-09-28] MEDS: BLOOD SUGAR DIAGNOSTIC STRIP TEST SCH (21:00)
[2018-09-29] VITALS (32 sets, daily range): BP systolic 99–183; BP diastolic 51–94
[2018-09-29] MEDS ORDERED: DOPAMINE 400MG/250ML PREMIX 250 ML IV SCH (01:18)
[2018-09-29] MEDS ORDERED: SODIUM BICARBONATE 100 MEQ in DEXTROSE 5% WATER 1,000 ML IV SCH (03:00)
[2018-09-29 06:11] LABS: HEMATOCRIT. 30.5 % (42.0-52.0); HEMOGLOBIN. 9.6 g/dL (14.0-18.0); MEAN CORPUSCULAR HEMOGLOBIN 30.6 pg (28.0-32.0); MEAN CORPUSCULAR VOLUME 97.5 fL (80.0-94.0); MEAN PLATELET VOLUME 9.1 fl (7.4-10.4); PLATELET 147 x1000/uL (130-400); RED BLOOD CELL COUNT 3.12 mill/uL (4.7-6.1); RED CELL DISTRIBUTION WIDTH 17.4 % (11.6-14.6)
[2018-09-29 07:09] LABS: PLATELET ESTIMATE NORMAL
[2018-09-29] MEDS ORDERED: SODIUM BICARBONATE 8.4% 1 MEQ/ML 50ML SYR IV SCH (07:36)
[2018-09-29 08:35] LABS: BG BASE EXCESS -21.7 mmol/L (-2.0-2.0); BG CARBOXYHEMOGLOBIN 0.3 % (0.5-1.5); BG DEOXYHEMOGLOBIN 1.5 % (0.0-5.0); BG FRACTION INSPIRED OXYGEN 36; BG METHEMOGLOBIN 0.5 % (0.0-1.5); BG OXYGEN SATURATION 98.5 % (92.0-98.5); BG OXYHEMOGLOBIN 97.7 % (94.0-97.0); BG PCO2 25.3 mmHg (35.0-45.0); BG PO2 164.2 mmHg (75.0-100.0); BG SAMPLE SITE LEFT BRACHIAL; BG TOTAL HEMOGLOBIN 9.7 g/dL (12.0-18.0); BG VENT MODE NASAL CANNULA
[2018-09-29] MEDS: BLOOD SUGAR DIAGNOSTIC STRIP TEST SCH ×4 (09:00→21:08)
[2018-09-29] MEDS ORDERED: HEPARIN SODIUM 1,000 UNIT/1ML VIAL IV SCH (12:30)
[2018-09-29 16:26] LABS: HEPATITIS B SURFACE ANTIGEN NEGATIVE
[2018-09-29] MEDS: PANTOPRAZOLE SODIUM 40 MG/VIAL IV SCH (16:54)
[2018-09-29] MEDS: SODIUM BICARBONATE 100 MEQ in DEXTROSE 5% WATER 1,000 ML IV SCH ×2 (16:54→20:03)
[2018-09-29 16:55] LABS: HEPATITIS A AB IGM NEGATIVE (NEGATIVE)
[2018-09-29 16:56] LABS: BG BASE EXCESS 1.1 mmol/L (-2.0-2.0); BG CARBOXYHEMOGLOBIN 0.3 % (0.5-1.5); BG DEOXYHEMOGLOBIN 1.4 % (0.0-5.0); BG FRACTION INSPIRED OXYGEN 99.8; BG HCO3 ACT 23.9 mmol/L (22.0-26.0); BG METHEMOGLOBIN 0.3 % (0.0-1.5); BG OXYGEN SATURATION 98.6 % (92.0-98.5); BG PCO2 31.2 mmHg (35.0-45.0); BG PH 7.503 (7.350-7.450); BG PO2 163.4 mmHg (75.0-100.0); BG SAMPLE SITE RIGHT BRACHIAL; BG TOTAL HEMOGLOBIN 8.9 g/dL (12.0-18.0); BG VENT MODE MASK - NRB
[2018-09-29] MEDS ORDERED: FUROSEMIDE 40MG/4ML VIAL IVP NR (17:00)
[2018-09-29] MEDS: ENOXAPARIN 30MG/0.3ML SYR SUBCUT SCH (17:05)
[2018-09-29] MEDS ORDERED: IPRATROPIUM/ALBUTEROL 0.5-3(2.5)MG/3ML NEB HHN PRN (17:45)
[2018-09-29 18:12] LABS: T4 FREE 1.54 ng/dL (0.76-1.46)
[2018-09-29 18:32] LABS: FOLIC ACID (FOLATE) SERUM 15.7 ng/mL (>5.38)
[2018-09-29] MEDS: INSULIN LISPRO 100 UNITS/ML SUBCUT SCH (21:00)
[2018-09-30] VITALS (31 sets, daily range): BP systolic 93–178; BP diastolic 51–85
[2018-09-30] MEDS ORDERED: KCL 20MEQ/100ML PREMIX 100 ML IV NR
[2018-09-30] MEDS ORDERED: SODIUM BICARBONATE 100 MEQ in DEXTROSE 5% WATER 1,000 ML IV SCH ×2 (01:00→03:00)
[2018-09-30 06:00] LABS: HEMATOCRIT. 28.5 % (42.0-52.0); HEMOGLOBIN. 9.7 g/dL (14.0-18.0); MEAN CORPUSCULAR HEMOGLOBIN 30.6 pg (28.0-32.0); MEAN CORPUSCULAR VOLUME 90.1 fL (80.0-94.0); MEAN PLATELET VOLUME 8.7 fl (7.4-10.4); PLATELET 108 x1000/uL (130-400); RED BLOOD CELL COUNT 3.16 mill/uL (4.7-6.1); RED CELL DISTRIBUTION WIDTH 17.6 % (11.6-14.6)
[2018-09-30 07:09] LABS: PLATELET ESTIMATE DECREASED
[2018-09-30] MEDS: INSULIN LISPRO 100 UNITS/ML SUBCUT SCH ×4 (08:20→21:00)
[2018-09-30] MEDS: BLOOD SUGAR DIAGNOSTIC STRIP TEST SCH ×4 (08:45→21:00)
[2018-09-30] MEDS: DEXT 5%/0.45% NACL 1000ML 1,000 ML IV SCH (09:10)
[2018-09-30] MEDS: PANTOPRAZOLE SODIUM 40 MG/VIAL IV SCH (09:10)
[2018-09-30] MEDS ORDERED: DOPAMINE 400MG/250ML PREMIX 250 ML IV PRN (10:30)
[2018-09-30] MEDS: ENOXAPARIN 30MG/0.3ML SYR SUBCUT SCH (18:11)
[2018-10-01] VITALS (58 sets, daily range): BP systolic 92–173; BP diastolic 45–113
[2018-10-01 05:33] LABS: BASOPHILS % 0.3 % (0.0-2.0); EOSINOPHILS % 0.5 % (0.0-5.0); HEMATOCRIT. 29.1 % (42.0-52.0); HEMOGLOBIN. 9.9 g/dL (14.0-18.0); LYMPHOCYTES % 7.1 % (20.0-50.0); MEAN CORPUSCULAR HEMOGLOBIN 30.5 pg (28.0-32.0); MEAN CORPUSCULAR VOLUME 90.1 fL (80.0-94.0); MEAN PLATELET VOLUME 9.1 fl (7.4-10.4); NEUTROPHILS % 88.1 % (40.0-76.0); PLATELET 142 x1000/uL (130-400); RED BLOOD CELL COUNT 3.23 mill/uL (4.7-6.1); RED CELL DISTRIBUTION WIDTH 17.6 % (11.6-14.6)
[2018-10-01] MEDS: DEXT 5%/0.45% NACL 1000ML 1,000 ML IV SCH ×2 (05:44→23:30)
[2018-10-01] MEDS: PANTOPRAZOLE SODIUM 40 MG/VIAL IV SCH (08:20)
[2018-10-01] MEDS: INSULIN LISPRO 100 UNITS/ML SUBCUT SCH ×4 (08:23→20:27)
[2018-10-01] MEDS: BLOOD SUGAR DIAGNOSTIC STRIP TEST SCH ×4 (08:23→20:27)
[2018-10-01 11:55] LABS: *AMPHETAMINES SCREEN URINE NEGATIVE (NEGATIVE); *BARBITURATES SCREEN URINE NEGATIVE (NEGATIVE); *BENZODIAZEPINES SCREEN URINE NEGATIVE (NEGATIVE); *COCAINE SCREEN URINE NEGATIVE (NEGATIVE); METHADONE URINE SCREEN NEGATIVE (NEGATIVE)
[2018-10-01 11:56] LABS: CANNABINOID URINE SCREEN NEGATIVE (NEGATIVE); OPIATES URINE SCREEN NEGATIVE (NEGATIVE); PHENCYCLIDINE URINE SCREEN NEGATIVE (NEGATIVE)
[2018-10-01] MEDS: ENOXAPARIN 30MG/0.3ML SYR SUBCUT SCH (17:53)
[2018-10-01] MEDS: ATORVASTATIN CALCIUM 10MG TABLET PO SCH (20:31)
[2018-10-02] VITALS (32 sets, daily range): BP systolic 113–196; BP diastolic 62–101
[2018-10-02 07:19] LABS: BASOPHILS % 0.3 % (0.0-2.0); EOSINOPHILS % 1.2 % (0.0-5.0); HEMATOCRIT. 26.6 % (42.0-52.0); HEMOGLOBIN. 8.8 g/dL (14.0-18.0); LYMPHOCYTES % 14.4 % (20.0-50.0); MEAN CORPUSCULAR HEMOGLOBIN 30.6 pg (28.0-32.0); MEAN CORPUSCULAR VOLUME 92.5 fL (80.0-94.0); MEAN PLATELET VOLUME 9.4 fl (7.4-10.4); MONOCYTES % 7.3 % (2.0-8.0); NEUTROPHILS % 76.8 % (40.0-76.0); PLATELET 105 x1000/uL (130-400); RED BLOOD CELL COUNT 2.87 mill/uL (4.7-6.1); RED CELL DISTRIBUTION WIDTH 17.5 % (11.6-14.6)
[2018-10-02] MEDS: BLOOD SUGAR DIAGNOSTIC STRIP TEST SCH ×4 (07:50→21:11)
[2018-10-02] MEDS: PANTOPRAZOLE SODIUM 40 MG/VIAL IV SCH (08:47)
[2018-10-02] MEDS: INSULIN LISPRO 100 UNITS/ML SUBCUT SCH ×4 (08:49→21:00)
[2018-10-02] MEDS: ENOXAPARIN 30MG/0.3ML SYR SUBCUT SCH (18:16)
[2018-10-02] MEDS ORDERED: HEPARIN SODIUM 1,000 UNIT/1ML VIAL IV SCH (18:30)
[2018-10-02] MEDS: ATORVASTATIN CALCIUM 10MG TABLET PO SCH (21:11)
[2018-10-03] VITALS (13 sets, daily range): BP systolic 123–143; BP diastolic 63–88
[2018-10-03 07:21] LABS: BASOPHILS % 0.3 % (0.0-2.0); HEMATOCRIT. 23.9 % (42.0-52.0); HEMOGLOBIN. 7.9 g/dL (14.0-18.0); LYMPHOCYTES % 13.4 % (20.0-50.0); MEAN CORPUSCULAR HEMOGLOBIN 30.1 pg (28.0-32.0); MEAN CORPUSCULAR VOLUME 91.2 fL (80.0-94.0); MEAN PLATELET VOLUME 8.9 fl (7.4-10.4); MONOCYTES % 5.7 % (2.0-8.0); NEUTROPHILS % 79.6 % (40.0-76.0); PLATELET 121 x1000/uL (130-400); RED BLOOD CELL COUNT 2.62 mill/uL (4.7-6.1); RED CELL DISTRIBUTION WIDTH 17.6 % (11.6-14.6)
[2018-10-03] MEDS: BLOOD SUGAR DIAGNOSTIC STRIP TEST SCH ×4 (08:26→21:40)
[2018-10-03] MEDS: PANTOPRAZOLE SODIUM 40 MG/VIAL IV SCH (08:26)
[2018-10-03] MEDS: INSULIN LISPRO 100 UNITS/ML SUBCUT SCH ×3 (13:00→21:40)
[2018-10-03] MEDS: ENOXAPARIN 30MG/0.3ML SYR SUBCUT SCH (16:41)
[2018-10-03] MEDS: ATORVASTATIN CALCIUM 10MG TABLET PO SCH (21:40)
[2018-10-04] VITALS (13 sets, daily range): BP systolic 128–154; BP diastolic 61–81
[2018-10-04 06:46] LABS: BASOPHILS % 0.2 % (0.0-2.0); EOSINOPHILS % 1.2 % (0.0-5.0); HEMATOCRIT. 27.3 % (42.0-52.0); HEMOGLOBIN. 9.1 g/dL (14.0-18.0); LYMPHOCYTES % 11.1 % (20.0-50.0); MEAN CORPUSCULAR HEMOGLOBIN 30.4 pg (28.0-32.0); MEAN CORPUSCULAR VOLUME 91.3 fL (80.0-94.0); MEAN PLATELET VOLUME 8.2 fl (7.4-10.4); MONOCYTES % 5.8 % (2.0-8.0); NEUTROPHILS % 81.7 % (40.0-76.0); PLATELET 157 x1000/uL (130-400); RED BLOOD CELL COUNT 2.99 mill/uL (4.7-6.1); RED CELL DISTRIBUTION WIDTH 17.5 % (11.6-14.6)
[2018-10-04 07:10] LABS: PHOSPHORUS 5.3 mg/dL (2.5-4.9)
[2018-10-04] MEDS: BLOOD SUGAR DIAGNOSTIC STRIP TEST SCH ×3 (09:16→17:08)
[2018-10-04] MEDS: INSULIN LISPRO 100 UNITS/ML SUBCUT SCH ×3 (09:17→17:08)
[2018-10-04] MEDS: FAMOTIDINE 20MG/2ML VIAL IV SCH (09:17)
[2018-10-04] MEDS ORDERED: POTASSIUM CHLORIDE 20MEQ/PACKET PO NR (10:00)
[2018-10-04] MEDS: ENOXAPARIN 30MG/0.3ML SYR SUBCUT SCH (17:05)
[2018-10-05] VITALS (13 sets, daily range): BP systolic 109–145; BP diastolic 63–77
[2018-10-05] MEDS: ATORVASTATIN CALCIUM 10MG TABLET PO SCH ×2 (00:05→22:50)
[2018-10-05] MEDS: BLOOD SUGAR DIAGNOSTIC STRIP TEST SCH ×4 (00:05→17:43)
[2018-10-05] MEDS: EPOETIN ALFA 10000UNITS/ML VIAL SUBCUT SCH (00:05)
[2018-10-05] MEDS: INSULIN LISPRO 100 UNITS/ML SUBCUT SCH ×4 (00:21→17:44)
[2018-10-05 07:16] LABS: BASOPHILS % 0.4 % (0.0-2.0); EOSINOPHILS % 1.2 % (0.0-5.0); HEMATOCRIT. 29.2 % (42.0-52.0); HEMOGLOBIN. 9.6 g/dL (14.0-18.0); LYMPHOCYTES % 11.4 % (20.0-50.0); MEAN CORPUSCULAR HEMOGLOBIN 30.3 pg (28.0-32.0); MEAN CORPUSCULAR VOLUME 91.5 fL (80.0-94.0); MEAN PLATELET VOLUME 8.4 fl (7.4-10.4); PLATELET 188 x1000/uL (130-400); RED BLOOD CELL COUNT 3.19 mill/uL (4.7-6.1); RED CELL DISTRIBUTION WIDTH 17.3 % (11.6-14.6)
[2018-10-05] MEDS: FAMOTIDINE 20MG/2ML VIAL IV SCH (08:18)
[2018-10-05] MEDS ORDERED: CLOPIDOGREL 75MG TABLET PO SCH (09:00)
[2018-10-05] MEDS: LEVOFLOXACIN 500MG TABLET PO SCH (11:22)
[2018-10-05] MEDS ORDERED: INSULIN LISPRO 100 UNITS/ML SUBCUT SCH (13:00)
[2018-10-05 16:22] LABS: HEMATOCRIT 27.9 % (42.0-52.0); HEMOGLOBIN 9.2 g/dL (14.0-18.0); MEAN CORPUSCULAR VOLUME 90.4 fL (80.0-94.0); PLATELET 205 x1000/uL (130-400); RED BLOOD CELL COUNT 3.08 mill/uL (4.7-6.1); RED CELL DISTRIBUTION WIDTH 16.5 % (11.6-14.6)
[2018-10-05 16:25] LABS: PROTHROMBIN TIME 9.7 sec (9.1-11.1)
[2018-10-06] VITALS (14 sets, daily range): BP systolic 84–152; BP diastolic 51–135
[2018-10-06 07:00] LABS: BASOPHILS % 0.5 % (0.0-2.0); EOSINOPHILS % 1.7 % (0.0-5.0); HEMATOCRIT. 28.6 % (42.0-52.0); HEMOGLOBIN. 9.5 g/dL (14.0-18.0); LYMPHOCYTES % 19.2 % (20.0-50.0); MEAN CORPUSCULAR HEMOGLOBIN 30.3 pg (28.0-32.0); MEAN CORPUSCULAR VOLUME 90.9 fL (80.0-94.0); MEAN PLATELET VOLUME 8.5 fl (7.4-10.4); MONOCYTES % 8.8 % (2.0-8.0); NEUTROPHILS % 69.8 % (40.0-76.0); PLATELET 258 x1000/uL (130-400); RED BLOOD CELL COUNT 3.15 mill/uL (4.7-6.1); RED CELL DISTRIBUTION WIDTH 17.3 % (11.6-14.6)
[2018-10-06] MEDS ORDERED: DEXT 5%/0.9% NACL 1,000 ML IV SCH (09:00)
[2018-10-06] MEDS: FAMOTIDINE 20MG/2ML VIAL IV SCH (09:24)
[2018-10-06] MEDS: BLOOD SUGAR DIAGNOSTIC STRIP TEST SCH ×2 (12:00→18:22)
[2018-10-06] MEDS: INSULIN LISPRO 100 UNITS/ML SUBCUT SCH ×3 (13:17→18:00)
[2018-10-06] MEDS ORDERED: LEVOFLOXACIN 250MG PREMIX 50 ML IV NR (15:00)
[2018-10-06] MEDS ORDERED: SIMETHICONE 40 MG/0.6 ML 30ML ONE (15:02)
[2018-10-06] MEDS ORDERED: BACTERIOSTATIC SODIUM CHLORIDE 0.9% 30ML VIAL IJ ONE (15:02)
[2018-10-06] MEDS ORDERED: ENOXAPARIN 30MG/0.3ML SYR SUBCUT SCH (17:00)
[2018-10-06] MEDS: ATORVASTATIN CALCIUM 10MG TABLET PO SCH (22:14)
[2018-10-07] VITALS (11 sets, daily range): BP systolic 82–128; BP diastolic 48–89
[2018-10-07] MEDS: BLOOD SUGAR DIAGNOSTIC STRIP TEST SCH ×4 (00:43→18:23)
[2018-10-07] MEDS: DEXT 5%/0.9% NACL 1,000 ML IV SCH ×2 (00:50→21:14)
[2018-10-07] MEDS: EPOETIN ALFA 10000UNITS/ML VIAL SUBCUT SCH (00:54)
[2018-10-07] MEDS: INSULIN LISPRO 100 UNITS/ML SUBCUT SCH ×4 (00:58→18:23)
[2018-10-07] MEDS: FAMOTIDINE 20MG/2ML VIAL IV SCH (08:38)
[2018-10-07 11:02] LABS: BG CARBOXYHEMOGLOBIN 0.2 % (0.5-1.5); BG DEOXYHEMOGLOBIN 7.6 % (0.0-5.0); BG FRACTION INSPIRED OXYGEN 36; BG METHEMOGLOBIN 0.2 % (0.0-1.5); BG OXYGEN SATURATION 92.4 % (92.0-98.5); BG PCO2 48.1 mmHg (35.0-45.0); BG PO2 71.4 mmHg (75.0-100.0); BG SAMPLE SITE RIGHT BRACHIAL; BG TOTAL HEMOGLOBIN 10.8 g/dL (12.0-18.0); BG VENT MODE NASAL CANNULA
[2018-10-07] MEDS: LEVOFLOXACIN 500MG TABLET PO SCH (11:25)
[2018-10-07] MEDS ORDERED: IPRATROPIUM/ALBUTEROL 0.5-3(2.5)MG/3ML NEB HHN PRN (13:00)
[2018-10-07] MEDS: ACETYLCYSTEINE 100MG/ML 10% VIAL 4ML INH SCH (15:27)
[2018-10-07] MEDS: IPRATROPIUM/ALBUTEROL 0.5-3(2.5)MG/3ML NEB HHN SCH ×2 (15:30→22:12)
[2018-10-07] MEDS: ATORVASTATIN CALCIUM 10MG TABLET PO SCH (21:13)
[2018-10-08] VITALS (12 sets, daily range): BP systolic 107–128; BP diastolic 56–69
[2018-10-08] MEDS: BLOOD SUGAR DIAGNOSTIC STRIP TEST SCH ×4 (00:31→17:20)
[2018-10-08] MEDS: INSULIN LISPRO 100 UNITS/ML SUBCUT SCH ×4 (00:31→17:25)
[2018-10-08] MEDS: ACETYLCYSTEINE 100MG/ML 10% VIAL 4ML INH SCH ×2 (02:10→15:55)
[2018-10-08] MEDS: IPRATROPIUM/ALBUTEROL 0.5-3(2.5)MG/3ML NEB HHN SCH ×4 (02:11→15:55)
[2018-10-08 07:01] LABS: HEMATOCRIT. 27.4 % (42.0-52.0); HEMOGLOBIN. 8.8 g/dL (14.0-18.0); MEAN CORPUSCULAR HEMOGLOBIN 29.3 pg (28.0-32.0); MEAN CORPUSCULAR VOLUME 91.9 fL (80.0-94.0); PLATELET 441 x1000/uL (130-400); RED BLOOD CELL COUNT 2.99 mill/uL (4.7-6.1); RED CELL DISTRIBUTION WIDTH 17.7 % (11.6-14.6)
[2018-10-08] MEDS: FAMOTIDINE 20MG/2ML VIAL IV SCH (08:06)
[2018-10-08 12:07] LABS: PLATELET ESTIMATE INCREASED
[2018-10-08] MEDS: DEXT 5%/0.9% NACL 1,000 ML IV SCH (16:20)
[2018-10-08] MEDS ORDERED: DIPHENHYDRAMINE 50MG/ML VIAL ONE (18:58)
[2018-10-08] MEDS ORDERED: MIDAZOLAM HCL 5 MG/5 ML VIAL ONE (18:59)
[2018-10-08] MEDS ORDERED: FENTANYL CITRATE/PF 50MCG/ML 2ML VIAL ONE (18:59)
[2018-10-08] MEDS ORDERED: MIDAZOLAM HCL 5 MG/5 ML VIAL IV PRN (19:22)
[2018-10-08] MEDS ORDERED: FENTANYL CITRATE/PF 50MCG/ML 2ML VIAL IV PRN (19:23)
[2018-10-08] MEDS ORDERED: CEFAZOLIN 1000MG PREMIX 50 ML IV SCH (20:00)
[2018-10-09] VITALS (68 sets, daily range): BP systolic 87–215; BP diastolic 48–114
[2018-10-09] MEDS: BLOOD SUGAR DIAGNOSTIC STRIP TEST SCH ×4 (00:52→18:40)
[2018-10-09 02:51] LABS: BG BASE EXCESS -1.5 mmol/L (-2.0-2.0); BG CARBOXYHEMOGLOBIN 0.3 % (0.5-1.5); BG DEOXYHEMOGLOBIN 0.8 % (0.0-5.0); BG FRACTION INSPIRED OXYGEN 100; BG HCO3 ACT 20.9 mmol/L (22.0-26.0); BG METHEMOGLOBIN 0.3 % (0.0-1.5); BG OXYGEN SATURATION 99.2 % (92.0-98.5); BG OXYHEMOGLOBIN 98.6 % (94.0-97.0); BG PCO2 27.4 mmHg (35.0-45.0); BG PEEP (cmH2O) 0 cmH2O; BG PO2 230.4 mmHg (75.0-100.0); BG SAMPLE SITE RIGHT BRACHIAL; BG TIDAL VOLUME(mL) 450 mL; BG TOTAL HEMOGLOBIN 9.5 g/dL (12.0-18.0); BG VENT MODE VENT - A/C; BG VENT RATE 12 set
[2018-10-09] MEDS: EPOETIN ALFA 10000UNITS/ML VIAL SUBCUT SCH (03:13)
[2018-10-09] MEDS ORDERED: PROPOFOL 10MG/ML 100ML 100 ML IV PRN (04:00)
[2018-10-09 05:32] LABS: HEMATOCRIT. 26.7 % (42.0-52.0); HEMOGLOBIN. 8.8 g/dL (14.0-18.0); MEAN CORPUSCULAR HEMOGLOBIN 29.7 pg (28.0-32.0); MEAN CORPUSCULAR VOLUME 89.7 fL (80.0-94.0); MEAN PLATELET VOLUME 7.7 fl (7.4-10.4); PLATELET 485 x1000/uL (130-400); RED BLOOD CELL COUNT 2.98 mill/uL (4.7-6.1); RED CELL DISTRIBUTION WIDTH 17.5 % (11.6-14.6)
[2018-10-09] MEDS: INSULIN LISPRO 100 UNITS/ML SUBCUT SCH ×4 (06:33→18:00)
[2018-10-09] MEDS: METOCLOPRAMIDE HCL 10MG/2ML VIAL IV SCH ×4 (06:33→18:39)
[2018-10-09 07:56] LABS: BG CARBOXYHEMOGLOBIN 0.1 % (0.5-1.5); BG DEOXYHEMOGLOBIN 0.4 % (0.0-5.0); BG FRACTION INSPIRED OXYGEN 80; BG HCO3 ACT 21.1 mmol/L (22.0-26.0); BG METHEMOGLOBIN 0.6 % (0.0-1.5); BG OXYGEN SATURATION 99.6 % (92.0-98.5); BG OXYHEMOGLOBIN 98.9 % (94.0-97.0); BG PCO2 29.2 mmHg (35.0-45.0); BG PH 7.476 (7.350-7.450); BG PO2 303.5 mmHg (75.0-100.0); BG SAMPLE SITE RIGHT BRACHIAL; BG TIDAL VOLUME(mL) 450 mL; BG TOTAL HEMOGLOBIN 7.9 g/dL (12.0-18.0); BG VENT MODE VENT - A/C; BG VENT RATE 10 set
[2018-10-09] MEDS ORDERED: ACETAMINOPHEN 650MG/20.3ML UDC PO PRN (08:30)
[2018-10-09] MEDS: ACETYLCYSTEINE 100MG/ML 10% VIAL 4ML INH SCH (09:04)
[2018-10-09] MEDS: IPRATROPIUM/ALBUTEROL 0.5-3(2.5)MG/3ML NEB HHN SCH ×3 (09:05→21:06)
[2018-10-09] MEDS: PIPERACILLIN/TAZ 2.25G PREMIX 50 ML IV SCH ×3 (10:02→21:18)
[2018-10-09] MEDS: FAMOTIDINE 20MG/2ML VIAL IV SCH (10:02)
[2018-10-09] MEDS: PANTOPRAZOLE SODIUM 40 MG/VIAL IV SCH (10:14)
[2018-10-09] MEDS: LEVOFLOXACIN 500MG TABLET PO SCH (11:03)
[2018-10-09 15:03] LABS: PLATELET ESTIMATE SLIGHTLY INCREASED
[2018-10-10] VITALS (73 sets, daily range): BP systolic 44–127; BP diastolic 18–72
[2018-10-10] MEDS: BLOOD SUGAR DIAGNOSTIC STRIP TEST SCH ×4 (00:02→16:59)
[2018-10-10] MEDS: METOCLOPRAMIDE HCL 10MG/2ML VIAL IV SCH ×4 (00:04→17:30)
[2018-10-10] MEDS: INSULIN LISPRO 100 UNITS/ML SUBCUT SCH ×4 (00:05→17:31)
[2018-10-10] MEDS: IPRATROPIUM/ALBUTEROL 0.5-3(2.5)MG/3ML NEB HHN SCH ×6 (00:11→20:39)
[2018-10-10] MEDS: ACETYLCYSTEINE 100MG/ML 10% VIAL 4ML INH SCH ×3 (00:12→15:37)
[2018-10-10] MEDS: PIPERACILLIN/TAZ 2.25G PREMIX 50 ML IV SCH ×4 (05:35→21:26)
[2018-10-10 05:37] LABS: HEMATOCRIT. 28.3 % (42.0-52.0); HEMOGLOBIN. 9.1 g/dL (14.0-18.0); MEAN CORPUSCULAR HEMOGLOBIN 29.5 pg (28.0-32.0); MEAN CORPUSCULAR VOLUME 91.7 fL (80.0-94.0); MEAN PLATELET VOLUME 7.7 fl (7.4-10.4); PLATELET 503 x1000/uL (130-400); RED BLOOD CELL COUNT 3.09 mill/uL (4.7-6.1); RED CELL DISTRIBUTION WIDTH 17.7 % (11.6-14.6)
[2018-10-10 08:38] LABS: PLATELET ESTIMATE INCREASED
[2018-10-10] MEDS: PANTOPRAZOLE SODIUM 40 MG/VIAL IV SCH (09:33)
[2018-10-10] MEDS ORDERED: VANCOMYCIN 1 G PREMIX 200 ML IV NR (12:00)
[2018-10-10] MEDS ORDERED: NOREPINEPHRINE 32 MG in DEXT 5% WATER 468 ML IV PRN (20:15)
[2018-10-10] MEDS ORDERED: EPINEPHRINE 2 MG in SODIUM CHLORIDE 0.9% 498 ML IV PRN (23:45)
[2018-10-11] MEDS ORDERED: EPINEPHRINE 0.1MG/ML (1:10,000) 10ML SYR ONE (00:41)
[2018-10-11] MEDS ORDERED: SODIUM BICARBONATE 7.5% 0.9 MEQ/ML 50ML SYR IV ONE (00:41)
[2018-10-11] MEDS ORDERED: CALCIUM CHLORIDE 1GM/10ML SYR IV ONE (00:41)
== END 2018-10-10 23:58 | disposition expired | DRG 720 ==
LOC: ER 13:31 → CVICU 16:12 → ENRESERV 09-29 07:59 → 5EST 10-02 17:40 → MICUSO 10-09 00:30
PROVIDERS: ADMIT Internal Medicine; ATTEND Internal Medicine
PROC: 06HY33Z Insertion of Infusion Device into Lower Vein, Percutaneous Approach (ICD-10-PCS; 2018-09-28)
PROC: B54BZZA Ultrasonography of Right Lower Extremity Veins, Guidance (ICD-10-PCS; 2018-09-28)
PROC: 5A1D70Z Performance of Urinary Filtration, Intermittent, Less than 6 Hours Per Day (ICD-10-PCS; 2018-09-28)
PROC: 06HY33Z Insertion of Infusion Device into Lower Vein, Percutaneous Approach (ICD-10-PCS; 2018-09-28)
PROC: B54BZZA Ultrasonography of Right Lower Extremity Veins, Guidance (ICD-10-PCS; 2018-09-28)
PROC: 5A1D70Z Performance of Urinary Filtration, Intermittent, Less than 6 Hours Per Day (ICD-10-PCS; 2018-09-30)
PROC: 4A00X4Z Measurement of Central Nervous Electrical Activity, External Approach (ICD-10-PCS; 2018-09-30)
PROC: 5A1D70Z Performance of Urinary Filtration, Intermittent, Less than 6 Hours Per Day (ICD-10-PCS; 2018-10-02)
PROC: 4A10X4Z Monitoring of Central Nervous Electrical Activity, External Approach (ICD-10-PCS; 2018-10-04)
PROC: 5A1D70Z Performance of Urinary Filtration, Intermittent, Less than 6 Hours Per Day (ICD-10-PCS; 2018-10-04)
PROC: 5A1D70Z Performance of Urinary Filtration, Intermittent, Less than 6 Hours Per Day (ICD-10-PCS; 2018-10-06)
PROC: 5A1945Z Respiratory Ventilation, 24-96 Consecutive Hours (ICD-10-PCS; 2018-10-08)
PROC: 5A1D70Z Performance of Urinary Filtration, Intermittent, Less than 6 Hours Per Day (ICD-10-PCS; 2018-10-08)
PROC: 0BH17EZ Insertion of Endotracheal Airway into Trachea, Via Natural or Artificial Opening (ICD-10-PCS; principal; 2018-10-09)
PROC: 5A12012 Performance of Cardiac Output, Single, Manual (ICD-10-PCS; 2018-10-10)
PROC: 5A1D70Z Performance of Urinary Filtration, Intermittent, Less than 6 Hours Per Day (ICD-10-PCS; 2018-10-10)
DX: A41.9 Sepsis, unspecified organism (principal); J96.00 Acute respiratory failure, unspecified whether with hypoxia or hypercapnia; I63.9 Cerebral infarction, unspecified; N17.0 Acute kidney failure with tubular necrosis; R65.21 Severe sepsis with septic shock; G92 Toxic encephalopathy; R13.10 Dysphagia, unspecified; E44.0 Moderate protein-calorie malnutrition; I46.9 Cardiac arrest, cause unspecified; I67.83 Posterior reversible encephalopathy syndrome; E87.2 Acidosis; E87.4 Mixed disorder of acid-base balance; E87.5 Hyperkalemia; N18.6 End stage renal disease; E11.22 Type 2 diabetes mellitus with diabetic chronic kidney disease; J44.9 Chronic obstructive pulmonary disease, unspecified; I12.0 Hypertensive chronic kidney disease with stage 5 chronic kidney disease or end stage renal disease; D63.1 Anemia in chronic kidney disease; F32.9 Major depressive disorder, single episode, unspecified; I25.10 Atherosclerotic heart disease of native coronary artery without angina pectoris; I67.4 Hypertensive encephalopathy; R62.7 Adult failure to thrive; D63.8 Anemia in other chronic diseases classified elsewhere; R40.2430 Glasgow coma scale score 3-8, unspecified time; K29.60 Other gastritis without bleeding; N39.0 Urinary tract infection, site not specified; Z68.1 Body mass index [BMI] 19.9 or less, adult; Z79.899 Other long term (current) drug therapy; Z86.73 Personal history of transient ischemic attack (TIA), and cerebral infarction without residual deficits; Z91.14 Patient's other noncompliance with medication regimen; Z91.15 Patient's noncompliance with renal dialysis; Z91.19 Patient's noncompliance with other medical treatment and regimen; Z93.1 Gastrostomy status; Z99.2 Dependence on renal dialysis; Z86.74 Personal history of sudden cardiac arrest; Z88.9 Allergy status to unspecified drugs, medicaments and biological substances; B96.1 Klebsiella pneumoniae [K. pneumoniae] as the cause of diseases classified elsewhere
CPT/HCPCS: 36415; 36569; 36600; 70551; 71045; 76937; 80048; 80305; 82140; 82375; 82607; 82746; 82805; 82962; 83036; 83605; 83880; 84100; 84132; 84145; 84439; 84443; 84478; 84481; 84484; 85027; 86705; 86706; 86709; 86803; 87077; 87186; 87340; 87493; 92610; 93005; 93306; 93880; 93970; 94003; 94640; 96365; 96375; 97163; 97167; 97530; 99291; A6261; C1752; C9113; J0610; J0690; J0885; J1200; J1265; J1644; J1650; J1815; J1940; J1956; J2250; J2543; J2765; J3010; J3370; J3480; J3490; J7030; J7042; J7050; J7070; J7608; J7611; J7620; A4315